=== PATIENT | male | born 1965 ===

== ENCOUNTER 2018-04-28 11:00 | Inpatient (IN) | payer OTHER ==
[2018-04-26 12:09] VITALS: BMI 19.3
[2018-04-28] MEDS ORDERED: Lidocaine 2% Inj (20ml) ONE (11:30)
[2018-04-28] MEDS ORDERED: Midazolam 2 MG/2 ML VIAL ONE (12:00)
[2018-04-28] MEDS ORDERED: Iodixanol 320 MG/ML 200 ML BOTTLE IV ONE ×2 (12:01→13:26)
[2018-04-28] MEDS ORDERED: Iodixanol 320 MG/ML 100 ML BOTTLE IV ONE (12:01)
[2018-04-28] MEDS ORDERED: Nitroglycerin 50mg in D5W 0 MG/0 ML BOTTLE IV ONE (12:01)
--- NOTE | 2018-04-28 12:10 | CP.PCM.HP ---
History of Present Illness - History of Present Illness History of Present Illness: Palmer Lopez- Internal Medicine Progress Note for Hospitalist Team Subjective: CC: Transfer from [facility] for Management of GI Bleed HPI: Patient is a 52 year old male with a past medical history of AIDS, tuberculosis involving the bone marrow, cachexia/failure to thrive, parasthesias who was transferred to the [facility] for evaluation and treatment of refractory upper GI Bleed despite endoscopic therapy. Patient is vented and sedated so no further subjective data can be assessed at this time. All information is ascertained from prior medical records. As a brief synopsis the patient presented to [facility] on 04/27/2018 for evaluation and treatment of feeling weak and experiencing paraesthesia. Patient was at that time was found to be pancytopenic while experiencing persistent hypotension, GI bleed, and hypercalcemia. 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 There was an inappropriate response to 6 total units of pRBC, 2 platelets, and 2 FFP. Patient has been transferred to [place] for evaluation by internventional radiology for possible embolization and IVC filter placement. 12 point ROS cannot be ascertained at this time due to altered mental status PMHx of recent active TB on discharge 04/04/18 (on therapy since 03/15/18), diagnosed with AIDS on HAART (CD422 03/2018) and syphilis 12/2017, and prior infectious diarrhea PSHx: Inguinal hernia repair Allergies: NKDA Social History: as per records- denied ETOH use, tobacco use, and illicit drug use Family History: as per records- mother with DM Medications: please refer to MAR PMD: Florin (last visit 04/24/2018) Pharmacy: unknown Physical Examination: - Constitutional Appears: No Acute Distress, Older Than Stated Age, Cachectic, Chronically Ill - Head Exam Head Exam: ATRAUMATIC, NORMAL INSPECTION - Eye Exam Eye Exam: Normal appearance - ENT Exam ENT Exam: Mucous Membranes Dry - Respiratory Exam Respiratory Exam: Clear to Ausculation Bilateral - Cardiovascular Exam Cardiovascular Exam: REGULAR RATE AND RHYTHM, +S1, +S2 - GI/Abdominal Exam GI & Abdominal Exam: Soft, Normal Bowel Sounds. absent: Tenderness, guarding, rebound tendernes - Extremities Exam Extremities Exam: absent: Pedal Edema - Neurological Exam Neurological Exam: limited exam-sedated on ventilator - Skin Skin Exam: jaundice Assessment and Plan: Patient is a 52 year old male with a past medical history of AIDS, tuberculosis involving the bone marrow, cachexia/failure to thrive, parasthesias who was transferred to the [facility] for evaluation and treatment of a refractory upper GI Bleed. Hemorrhagic Shock - monitor h and h - transfuse if hgb < 7 - monitor vitals, keep MAP > 65 - start pressors if MAP < 65 as per ICU team Respiratory Failure Secondary to Shock - intubated and sedated - vent settings as per ICU team - patient vented and sedated for airway protection GI Bleed - 4 FFP, 2 platelets, and 3 RBCs ordered - interventional radiology consulted for potential arterial embolization - monitor H and H Hemorrhagic Anemia - s/p emergent EGD at [facility], likely cause Duodenal AVM - c/w protonix drip - transfuse to keep Hgb > 7 - general surgery consulted- appreciate recommendations Symptomatic AIDS, Syphilis - CD4: 86 as of 04/24 - ID consulted- appreciate recommendations - MAHARAJ therapy - pending ID approval - azithromycin for MAC ppx - pending ID approval - Bactrim for PCP ppx - pending ID approval Tuberculosis - c/w RIP therapy (ethambutol d/terence by [facility] as per [place] records)- pending ID approval Failure to thrive/Wasting Syndrome - likley secondary to AIDS, multiple comorbities - treat underlying condition Prophylaxis - DVT- no AC at this time due to hemorrhagic anemia - GI ppx- protonix Patient case discussed with and plan approved by attending physician, Dr. Carey. Present on Admission - Present on Admission Any Indicators Present on Admission: No Past Patient History - Infectious Disease Hx of Infectious Diseases: None (see chart) - Tetanus Immunizations Tetanus Immunization: Unknown - Past Medical History & Family History Past Medical History?: Yes - Past Social History Smoking Status: Never Smoked Chewing Tobacco Use: No - CARDIAC Hx Cardiac Disorders: No - PULMONARY Hx Respiratory Disorders: No - NEUROLOGICAL Hx Neurological Disorder: No - HEENT Hx HEENT Problems: No - RENAL Hx Chronic Kidney Disease: No - ENDOCRINE/METABOLIC Hx Endocrine Disorders: No - HEMATOLOGICAL/ONCOLOGICAL Hx AIDS: Yes Hx Human Immunodeficiency Virus (HIV): Yes - INTEGUMENTARY Hx Dermatological Problems: No - MUSCULOSKELETAL/RHEUMATOLOGICAL Hx Musculoskeletal Disorders: No Hx Falls: Yes Other/Comment: TB inolving the bone - GASTROINTESTINAL Hx Pancreatitis: Yes - GENITOURINARY/GYNECOLOGICAL Hx Genitourinary Disorders: No - PSYCHIATRIC Hx Psychophysiologic Disorder: No Hx Substance Use: (Patient Unable to Answer) - SURGICAL HISTORY Hx Surgeries: Yes Other/Comment: hx of hernia repair (inguial hernia) - ANESTHESIA Hx Anesthesia: Yes Hx Anesthesia Reactions: No Hx Malignant Hyperthermia: No Meds Allergies/Adverse Reactions: Allergies Allergy/AdvReac Type Severity Reaction Status Date / Time No Known Allergies Allergy Verified 04/26/18 12:14 Results - Labs Result Diagrams: 04/28/18 12:30 04/28/18 12:30
[2018-04-28] MEDS ORDERED: Phenylephrine 10 mg/ml Inj ONE (12:16)
[2018-04-28 12:40] LABS: VENOUS BLOOD GAS PO2 148 mm/Hg (30-55); VENOUS BLOOD PH 7.32 (7.32-7.43)
[2018-04-28 12:45] LABS: BASO # 0.01 K/mm3 (0.0-2.0); BASO % 0.4 % (0.0-3.0); EOS # 0.1 (0.0-0.7); EOS % 1.8 % (1.5-5.0); GRAN # 2.1 (1.4-6.5); GRAN % 77.5 % (50.0-68.0); HEMOGLOBIN 8.2 g/dL (14.0-18.0); LYMPH # 0.4 (1.2-3.4); LYMPH % 15.9 % (22.0-35.0); MEAN CELL VOLUME 85.4 fl (80.0-105.0); MEAN CORPUSCULAR HEMOGLOBIN 30.6 pg (25.0-35.0); MEAN CORPUSCULAR HGB CONC 35.8 g/dl (31.0-37.0); MEAN PLATELET VOLUME 10.1 fl (7.0-11.0); MONO # 0.1 (0.1-0.6); MONO % 4.4 % (1.0-6.0); RBC 2.68 10^6/uL (3.5-6.1); RED CELL DISTRIBUTION WIDTH 16.6 % (11.5-14.5)
[2018-04-28 12:47] LABS: WHITE BLOOD COUNT 2.7 10^3/ul (4.5-11.0)
[2018-04-28 12:48] LABS: ALB/GLOB RATIO 0.5 (1.1-1.8); ALBUMIN 1.4 g/dL (3.0-4.8); ALT/SGPT 37 U/L (7-56); AST/SGOT 51 U/L (17-59); BLOOD UREA NITROGEN 34 mg/dL (7-21); CALCIUM 9.8 mg/dL (8.4-10.5); GFR AFRICAN-AMERICAN > 60; GFR NON-AFRICAN AMERICAN > 60; INR 1.18 (0.93-1.08); PROTHROMBIN TIME 13.6 SECONDS (9.4-12.5)
[2018-04-28 12:59] LABS: TROPONIN I < 0.01 ng/mL
[2018-04-28] MEDS ORDERED: Sodium Chloride 0.9% 1,000 ML IV STA (14:37)
[2018-04-28] MEDS ORDERED: Propofol 10 mg/ml 1,000 MG/100 ML VIAL ONE (14:49)
[2018-04-28] MEDS ORDERED: Propofol 10 mg/ml 1,000 MG/100 ML VIAL IV PRN (14:50)
[2018-04-28] MEDS: Pantoprazole 40mg/100mL NS 40 MG/100 ML BAG IVPB SCH ×2 (15:00→21:16)
--- NOTE | 2018-04-28 15:10 | CP.PCM.CON ---
History of Present Illness - History of Present Illness History of Present Illness: General Surgery Consult note for Dr. 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 Patient had original presented in [place] c/o weakness and parasthesias. He had several bloody BMs there, became hypotensive and was subsequently intubated and taken for emergency EGD. EGD repair of bleed was unsuccessful. Dr. Arvizu decied to transfer patient to [facility] for angiographic embolization. Prior to arrival the patient had recieved 9 units PRBC, 2 units FFP and 2 units platelets. Patient was taken to IR embolization by Dr. 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 Patient is currently mildly tachycardic but otherwise stable. History is entirely from medical records as patient is intubated and cannot be interviewed. PMH: HIV/AIDS, syphilis, tuberculosis with Pott's disease PSH: inguinal hernia repair Social:denied smoking ETOH and drugs at [place] Review of Systems - Review of Systems Systems not reviewed;Unavailable: Intubated Past Patient History - Infectious Disease Hx of Infectious Diseases: None (see chart) - Tetanus Immunizations Tetanus Immunization: Unknown - Past Medical History & Family History Past Medical History?: Yes - Past Social History Smoking Status: Never Smoked Chewing Tobacco Use: No - CARDIAC Hx Cardiac Disorders: No - PULMONARY Hx Respiratory Disorders: No - NEUROLOGICAL Hx Neurological Disorder: No - HEENT Hx HEENT Problems: No - RENAL Hx Chronic Kidney Disease: No - ENDOCRINE/METABOLIC Hx Endocrine Disorders: No - HEMATOLOGICAL/ONCOLOGICAL Hx AIDS: Yes Hx Human Immunodeficiency Virus (HIV): Yes - INTEGUMENTARY Hx Dermatological Problems: No - MUSCULOSKELETAL/RHEUMATOLOGICAL Hx Musculoskeletal Disorders: No Hx Falls: Yes Other/Comment: TB inolving the bone - GASTROINTESTINAL Hx Pancreatitis: Yes - GENITOURINARY/GYNECOLOGICAL Hx Genitourinary Disorders: No - PSYCHIATRIC Hx Psychophysiologic Disorder: No Hx Substance Use: (Patient Unable to Answer) - SURGICAL HISTORY Hx Surgeries: Yes Other/Comment: hx of hernia repair (inguial hernia) - ANESTHESIA Hx Anesthesia: Yes Hx Anesthesia Reactions: No Hx Malignant Hyperthermia: No Meds Allergies/Adverse Reactions: Allergies Allergy/AdvReac Type Severity Reaction Status Date / Time No Known Allergies Allergy Verified 04/26/18 12:14 - Medications Medications: Current Medications Atovaquone (Mepron) 750 mg PO BID JEROME PRN Reason: Protocol Sodium Chloride (Sodium Chloride 0.9%) 1,000 mls @ 999 mls/hr IV .Q1H1M STA Stop: 04/28/18 15:37 Pantoprazole Sodium (Protonix 40mg Ivpb) 40 mg in 100 mls @ 20 mls/hr IVPB .Q5H JEROME Dextrose/Sodium Chloride (Dextrose 5%/0.9% Ns 1000 Ml) 1,000 mls @ 150 mls/hr IV .Q6H40M JEROME Propofol (Diprivan) 1,000 mg in 100 mls @ 1.793 mls/hr IV .Q24H PRN; Protocol; 5 MCG/KG/MIN PRN Reason: TITRATE PER MD ORDER Isoniazid (Niazid) 300 mg PO DAILY JEROME PRN Reason: Protocol Pyrazinamide (Pyrazinamide) 1,000 mg PO DAILY JEROME PRN Reason: Protocol Pyridoxine HCl (Vitamin B6 50 Mg Tab) 100 mg PO DAILY JEROME Rifampin (Rifampin Cap) 600 mg PO DAILY JEROME PRN Reason: Protocol Physical Exam - Constitutional Appears: Cachectic, Chronically Ill - Head Exam Head Exam: ATRAUMATIC, NORMOCEPHALIC - ENT Exam ENT Exam: Mucous Membranes Dry - Respiratory Exam Respiratory Exam: NORMAL BREATHING PATTERN. absent: Respiratory Distress Additional comments: patient is intubated - Cardiovascular Exam Cardiovascular Exam: Tachycardia - GI/Abdominal Exam GI & Abdominal Exam: Distended, Soft. absent: Guarding, Rigid, Tenderness Additional comments: abdomen is mildly tympanic, bloody BM present in diaper - Extremities Exam Extremities exam: Negative for: pedal edema - Neurological Exam Additional comments: limited due to patient being sedated and intubated - Skin Skin Exam: Intact, Normal Color, Warm Results - Vital Signs Recent Vital Signs: Last Vital Signs Temp 99.1 F 04/28/18 12:10 Pulse 131 H 04/28/18 14:02 Resp 26 H 04/28/18 11:09 BP 136/68 04/28/18 14:03 Pulse Ox 92 L 04/28/18 14:02 - Labs Result Diagrams: 04/28/18 16:40 04/28/18 16:40 Labs: Laboratory Results - last 24 hr 04/28/18 04/28/18 04/28/18 12:20 12:30 12:30 WBC 2.7 L* RBC 2.68 L Hgb 8.2 L Hct 22.9 L MCV 85.4 MCH 30.6 MCHC 35.8 RDW 16.6 H Plt Count 67 L MPV 10.1 Gran % 77.5 H Lymph % (Auto) 15.9 L Amelia % (Auto) 4.4 Eos % (Auto) 1.8 Baso % (Auto) 0.4 Gran # 2.10 Lymph # (Auto) 0.4 L Amelia # (Auto) 0.1 Eos # (Auto) 0.1 Baso # (Auto) 0.01 PT INR APTT pO2 148 H VBG pH 7.32 VBG pCO2 38.0 L VBG HCO3 19.6 L VBG Total CO2 20.8 L VBG O2 Sat (Calc) 100.3 H VBG Base Excess -6.0 L VBG Potassium 3.5 L Sodium 141.0 Chloride 119.0 H Glucose 104 Lactate 1.3 FiO2 21.0 Potassium Carbon Dioxide Anion Gap BUN Creatinine Est GFR ( Amer) Est GFR (Non-Af Amer) Random Glucose Calcium Total Bilirubin AST ALT Alkaline Phosphatase Troponin I Total Protein Albumin Globulin Albumin/Globulin Ratio Venous Blood Potassium 3.5 L Blood Type A NEGATIVE Antibody Screen Negative Crossmatch See Detail BBK History Checked Patient has bt 04/28/18 04/28/18 12:30 12:30 WBC RBC Hgb Hct MCV MCH MCHC RDW Plt Count MPV Gran % Lymph % (Auto) Amelia % (Auto) Eos % (Auto) Baso % (Auto) Gran # Lymph # (Auto) Amelia # (Auto) Eos # (Auto) Baso # (Auto) PT 13.6 H INR 1.18 H APTT 35.0 pO2 VBG pH VBG pCO2 VBG HCO3 VBG Total CO2 VBG O2 Sat (Calc) VBG Base Excess VBG Potassium Sodium 143 Chloride 118 H Glucose Lactate FiO2 Potassium 3.5 L Carbon Dioxide 19 L Anion Gap 10 BUN 34 H Creatinine 1.0 Est GFR ( Amer) > 60 Est GFR (Non-Af Amer) > 60 Random Glucose 102 Calcium 9.8 Total Bilirubin 4.8 H AST 51 ALT 37 Alkaline Phosphatase 140 H D Troponin I < 0.01 Total Protein 4.4 L Albumin 1.4 L Globulin 3.0 Albumin/Globulin Ratio 0.5 L Venous Blood Potassium Blood Type Antibody Screen Crossmatch BBK History Checked Assessment & Plan - Assessment and Plan (Free Text) Assessment: 52 yr old male with HIV/AIDS, syphilis and TB with bone marrow involvement and a Duodenal bulb bleed s/p IR embolization of the left hepatic artery Plan: - Patient currently stable after successful IR embolization with coil in LHA mycotic aneurysm - Strict monitoring of NGT output, quality and amount - 1:1:1 prbc, plt and ffp replacement - Q4hr H/H - Further recs per Dr. Henry Cheney PGY 1 - Date & Time Date: 04/28/18 Time: 14:25
--- NOTE | 2018-04-28 15:26 | VASCULAR ---
PROCEDURE: 1. Selective celiac and SMA arteriograms. 2. Sub selective coil embolization of the right hepatic and proper hepatic artery. HISTORY: HIV positive. Active TB. Massive upper GI bleeding. Right hepatic artery pseudoaneurysm. PHYSICIAN(S): Elmer Arvizu M.D. TECHNIQUE: The procedure was performed under emergent basis. The patient was hydrated prior to the procedure and the appropriate labs drawn. The patient was placed supine on the arteriogram table and the left groin prepped and draped in the usual sterile fashion. Conscious sedation and monitoring were provided throughout the procedure by a nurse. Via a left common femoral artery approach, a 5 Nepalese sheath was placed in the right groin. Through the sheath and over a guidewire, a 5 Nepalese C1 catheter was placed in the proximal SMA. A DSA SMA arteriogram was performed. Next a catheter was placed in the celiac axis and a DSA celiac axis arteriogram performed. Selective common and proper hepatic DSA arteriograms were performed. There is a large lobulated pseudoaneurysm arising from the proximal right hepatic artery. A 3 Nepalese micro catheter was used to cross the right hepatic artery into its distal branches. Embolization distal to the pseudoaneurysms performed with 4 mm 0.018 microcoils. Additional 6 mm 0.035 coils were placed in the right hepatic artery, pseudoaneurysm, and proper hepatic artery. Embolization was performed to the takeoff of the gastroduodenal artery. No supply to the pseudoaneurysm or bleeding was noted from the gastroduodenal artery. Subsequently it was not embolized. Completion angiograms were obtained. The sheath was removed and hemostasis obtained with a Perclose device. FINDINGS: The SMA arteriogram is normal. No sites of bleeding were identified. No vasculitis or pseudoaneurysms were noted. SMV and portal vein are opacified and appear patent. No aberrant hepatic arterial supply is identified off the SMA. The celiac axis is patent. There is a large lobulated pseudoaneurysm arising from the right hepatic artery. No obvious extravasation or supply was identified arising from the gastroduodenal artery. The left hepatic artery is patent and normal. Successful embolization was performed with multiple coils. No off target embolization was appreciated. 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 2. Successful selective embolization distal and proximal to the pseudoaneurysm as described above. 3. Normal SMA.
--- NOTE | 2018-04-28 15:28 | VASCULAR ---
PROCEDURE: IVC Filter placement HISTORY: Massive upper GI bleed. Pseudoaneurysm right hepatic artery. Pulmonary embolus. Needs IVC filter. PHYSICIAN(S): Elmer Arvizu MD. TECHNIQUE: The procedure was performed under emergency basis. The patient was placed supine on the arteriogram table the left groin prepped and draped usual sterile fashion. Conscious sedation and monitoring were provided throughout the procedure by a nurse. Via a left common femoral vein approach, a 5 Tajik sheath was placed. A 5 Tajik flush catheter was placed in the left common iliac artery and a DSA IVC gram performed. Exchange was made for a support wire placed in the right atrium. The 7 Tajik sheath was advanced to the level of the renal veins. Next a argon retrievable filter was deployed in the infrarenal IVC at the level of L3. A post deployment cavagram was performed through the introducer sheath. The sheath was removed and hemostasis obtained. Patient tolerated the procedure well. FINDINGS: The visualized iliac veins and IVC are normal. No evidence of IVC thrombus or anomaly is seen. The renal veins are easily identified. The argon retrievable filter was deployed and is in good position at the level of L3. IMPRESSION: 1. No evidence of IVC anomaly or thrombus. 2. Successful deployment of a argon retrievable filter in the infrarenal IVC at the level of L3.
[2018-04-28 15:36] LABS: ARTERIAL BLOOD GAS HCO3 17.2 mmol/L (21-28); ARTERIAL BLOOD GAS HEMOGLOBIN 7.8 g/dL (11.7-17.4); ARTERIAL BLOOD GAS O2 CAPACITY 11.1 mL/dl (16-24); ARTERIAL BLOOD GAS O2 CONTENT 11.1 ML/dl (15-23); ARTERIAL BLOOD GAS O2 SAT 100.4 % (95-98); ARTERIAL BLOOD GAS PCO2 29 mm/Hg (35-45); ARTERIAL BLOOD GAS PH 7.38 (7.35-7.45); ARTERIAL BLOOD GAS TCO2 18.1 mmol.L (22-28)
--- NOTE | 2018-04-28 15:51 | RAD ---
Date of service: 04/28/2018 HISTORY: ett, tb COMPARISON: No prior. FINDINGS: LUNGS: The endotracheal tube is at the level of the clavicles. There is moderate vascular and interstitial congestion and a more focal right upper lobe infiltrate PLEURA: No significant pleural effusion identified, no pneumothorax apparent. CARDIOVASCULAR: Normal. OSSEOUS STRUCTURES: No significant abnormalities. VISUALIZED UPPER ABDOMEN: Normal. OTHER FINDINGS: None. IMPRESSION: The endotracheal tube is at the level of the clavicles. There is moderate vascular and interstitial congestion and a more focal right upper lobe infiltrate
[2018-04-28 17:05] LABS: ALB/GLOB RATIO 0.5 (1.1-1.8); ALBUMIN 1.5 g/dL (3.0-4.8); ALT/SGPT 35 U/L (7-56); AST/SGOT 48 U/L (17-59); BLOOD UREA NITROGEN 29 mg/dL (7-21); CALCIUM 9.3 mg/dL (8.4-10.5); GFR AFRICAN-AMERICAN > 60; GFR NON-AFRICAN AMERICAN > 60
--- NOTE | 2018-04-28 17:20 | RAD ---
Date of service: 04/28/2018 PROCEDURE: Portable chest HISTORY: confirm placement of OGT COMPARISON: Earlier study same day TECHNIQUE: FINDINGS: The nasogastric tube is in satisfactory position terminating in the region of the gastric fundus. The study is otherwise unchanged IMPRESSION: Satisfactory position of nasogastric tube
[2018-04-28 17:27] LABS: HEMOGLOBIN 7.5 g/dL (14.0-18.0); MEAN CELL VOLUME 85.1 fl (80.0-105.0); MEAN CORPUSCULAR HEMOGLOBIN 31.1 pg (25.0-35.0); MEAN CORPUSCULAR HGB CONC 35.4 g/dl (31.0-37.0); RBC 2.49 10^6/uL (3.5-6.1); WHITE BLOOD COUNT 2.5 10^3/ul (4.5-11.0)
[2018-04-28 17:28] LABS: BASO # 0.01 K/mm3 (0.0-2.0); BASO % 0.4 % (0.0-3.0); EOS % 1.2 % (1.5-5.0); GRAN # 1.93 (1.4-6.5); GRAN % 77.5 % (50.0-68.0); LYMPH # 0.4 (1.2-3.4); LYMPH % 14.1 % (22.0-35.0); MEAN PLATELET VOLUME 9.5 fl (7.0-11.0); MONO # 0.2 (0.1-0.6); MONO % 6.8 % (1.0-6.0); RED CELL DISTRIBUTION WIDTH 16.5 % (11.5-14.5)
[2018-04-28 17:29] LABS: INR 1.24 (0.93-1.08); PROTHROMBIN TIME 14.2 SECONDS (9.4-12.5)
[2018-04-28] MEDS ORDERED: NOREPINEPHRINE BIT/0.9 % NACL 4 MG/250 ML BAG IV PRN (17:35)
[2018-04-28] MEDS ORDERED: Albumin Human 5% (12.5 gm/250 ml) IV STA ×3 (17:35→18:00)
[2018-04-28] MEDS: Dextrose 5%/0.9% NS 1,000 ML IV SCH ×2 (18:32→21:16)
[2018-04-28] MEDS: Atovaquone 750 mg/5 ml Susp UD PO SCH (18:53)
[2018-04-28] MEDS: Propofol 10 mg/ml 1,000 MG/100 ML VIAL IV PRN (22:07)
[2018-04-28 22:37] LABS: BASO # 0.02 K/mm3 (0.0-2.0); BASO % 0.6 % (0.0-3.0); EOS % 0.9 % (1.5-5.0); GRAN # 2.61 (1.4-6.5); GRAN % 75.9 % (50.0-68.0); HEMOGLOBIN 8.7 g/dL (14.0-18.0); LYMPH # 0.5 (1.2-3.4); LYMPH % 14.2 % (22.0-35.0); MEAN CORPUSCULAR HEMOGLOBIN 30.4 pg (25.0-35.0); MEAN CORPUSCULAR HGB CONC 35.8 g/dl (31.0-37.0); MEAN PLATELET VOLUME 10.7 fl (7.0-11.0); MONO # 0.3 (0.1-0.6); MONO % 8.4 % (1.0-6.0); RBC 2.86 10^6/uL (3.5-6.1); RED CELL DISTRIBUTION WIDTH 15.8 % (11.5-14.5); WHITE BLOOD COUNT 3.4 10^3/ul (4.5-11.0)
[2018-04-28 22:57] LABS: INR 1.19 (0.93-1.08); PROTHROMBIN TIME 13.6 SECONDS (9.4-12.5)
[2018-04-29] MEDS: Pantoprazole 40mg/100mL NS 40 MG/100 ML BAG IVPB SCH ×2 (01:29→06:58)
[2018-04-29 02:21] LABS: BASO # 0.01 K/mm3 (0.0-2.0); BASO % 0.3 % (0.0-3.0); EOS % 0.9 % (1.5-5.0); GRAN # 2.66 (1.4-6.5); HEMOGLOBIN 8.7 g/dL (14.0-18.0); LYMPH # 0.5 (1.2-3.4); LYMPH % 15.1 % (22.0-35.0); MEAN CELL VOLUME 84.3 fl (80.0-105.0); MEAN CORPUSCULAR HEMOGLOBIN 30.3 pg (25.0-35.0); MEAN PLATELET VOLUME 10.2 fl (7.0-11.0); MONO # 0.2 (0.1-0.6); MONO % 6.7 % (1.0-6.0); PLATELET COUNT 82 10^3/uL (120.0-450.0); RBC 2.87 10^6/uL (3.5-6.1); RED CELL DISTRIBUTION WIDTH 16.1 % (11.5-14.5); WHITE BLOOD COUNT 3.5 10^3/ul (4.5-11.0)
[2018-04-29] MEDS: Dextrose 5%/0.9% NS 1,000 ML IV SCH (03:57)
[2018-04-29 05:28] LABS: ARTERIAL BLOOD GAS HCO3 16.7 mmol/L (21-28); ARTERIAL BLOOD GAS HEMOGLOBIN 8.3 g/dL (11.7-17.4); ARTERIAL BLOOD GAS O2 CAPACITY 11.8 mL/dl (16-24); ARTERIAL BLOOD GAS O2 CONTENT 11.9 ML/dl (15-23); ARTERIAL BLOOD GAS O2 SAT 100.7 % (95-98); ARTERIAL BLOOD GAS PCO2 27 mm/Hg (35-45); ARTERIAL BLOOD GAS TCO2 17.5 mmol.L (22-28)
[2018-04-29 06:40] LABS: BASO # 0.01 K/mm3 (0.0-2.0); BASO % 0.3 % (0.0-3.0); EOS % 1.1 % (1.5-5.0); GRAN # 2.8 (1.4-6.5); GRAN % 79.4 % (50.0-68.0); HEMOGLOBIN 8.8 g/dL (14.0-18.0); LYMPH # 0.5 (1.2-3.4); LYMPH % 13.3 % (22.0-35.0); MEAN CELL VOLUME 84.3 fl (80.0-105.0); MEAN CORPUSCULAR HGB CONC 35.6 g/dl (31.0-37.0); MEAN PLATELET VOLUME 10.2 fl (7.0-11.0); MONO # 0.2 (0.1-0.6); MONO % 5.9 % (1.0-6.0); RBC 2.93 10^6/uL (3.5-6.1); RED CELL DISTRIBUTION WIDTH 16.2 % (11.5-14.5); WHITE BLOOD COUNT 3.5 10^3/ul (4.5-11.0)
[2018-04-29] MEDS ORDERED: Potassium Chloride 20 mEq ER Tab PO STA (06:47)
[2018-04-29 06:51] LABS: NEUTROPHIL 58 % (50.0-70.0)
[2018-04-29] MEDS: Propofol 10 mg/ml 1,000 MG/100 ML VIAL IV PRN (06:59)
[2018-04-29 07:02] LABS: BAND 16 % (0-2)
[2018-04-29 07:03] LABS: ANISOCYTOSIS SLIGHT; EOSINOPHIL 1 % (0.0-3.0); LYMPHOCYTE 19 % (22.0-35.0); MONOCYTE 5 % (1.0-6.0); PLATELET ESTIMATE LOW (NORMAL); POIKILOCYTOSIS SLIGHT
[2018-04-29 07:04] LABS: METAMYELOCYTE 1 %
[2018-04-29 07:10] LABS: INR 1.17 (0.93-1.08); PROTHROMBIN TIME 13.5 SECONDS (9.4-12.5)
[2018-04-29 07:18] LABS: ALB/GLOB RATIO 0.6 (1.1-1.8); ALBUMIN 1.7 g/dL (3.0-4.8); ALT/SGPT 31 U/L (7-56); AST/SGOT 73 U/L (17-59); BLOOD UREA NITROGEN 25 mg/dL (7-21); CALCIUM 9.3 mg/dL (8.4-10.5); GFR AFRICAN-AMERICAN > 60; GFR NON-AFRICAN AMERICAN > 60
[2018-04-29] MEDS ORDERED: Magnesium 2 gm/50 ml NS 2 GM/50 ML BAG IVPB ONE (07:22)
--- NOTE | 2018-04-29 08:36 | CON ---
DATE: 04/28/2018 HISTORY OF PRESENT ILLNESS: Patient is a 52-year-old gentleman with history of HIV, syphilis, MTB, who presented to [facility] 3 days ago on 04/25/2018 with increased fatigue, weakness, and frequent falls. He also failed to thrive. Upon admission to the floor, he developed tachycardia, hypotension, and difficulty breathing. Eventually, he was intubated and fluid resuscitation was started. Patient was transferred to ICU at [facility]. Presumed diagnosis of severe sepsis with multiorgan system failure was made; however, shortly afterwards patient was found to have hemoglobin level substantially dropped, black stool, and GI consult was called for endoscopy. Of note, three AFB reportedly were negative (based on initial admitting note at [facility]). 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 Patient was decided to get transferred to [facility] for embolization of the fistula with subsequent return to [facility]. Upon admission to [facility] ICU, procedure was done and based on my conversation with Dr. Arvizu, who did the procedure, the bleeding was stopped. Patient continued to be in ICU for further management and monitoring. No nausea, no vomiting, no diarrhea. Patient was intermittently febrile. PAST MEDICAL HISTORY: MTB, HIV, syphilis. SOCIAL HISTORY: Unobtainable as patient is intubated. HOME MEDICATIONS: Rifampin, Bactrim, raltegravir, vitamin B6, pyrazinamide, nystatin oral suspension, multivitamins, Remeron, isoniazid, Neurontin, ethambutol, Truvada, and azithromycin. REVIEW OF SYSTEMS: Review of 12-organ system other than mentioned in history of present illness is negative. ALLERGIES: NKDA. PHYSICAL EXAMINATION: GENERAL: Patient is intubated and is on PRVC 410/5/12/50%. Patient is on D5 normal saline at 150 mL/hour. Patient is on Protonix drip and propofol drip at 50 mcg/kg/min. HEENT: Head and neck atraumatic. LUNGS: Clear to auscultation bilaterally. HEART: Regular rate and rhythm. S1 and S2 normal. ABDOMEN: Soft, nontender,nondistended. MUSCULOSKELETAL: No C/C/E. NEUROLOGIC: Patient is sedated. SKIN: Moist. PSYCHIATRIC: Patient is sedated. LABORATORY DATA: WBC 2.7, hemoglobin 8.2, platelet count 67 (overall patient received 8 to 9 units since first admission to [facility]. Sodium 143, potassium 3.5, chloride 118, carbon dioxide 19, BUN 34, creatinine 1, glucose 102. AST 51, ALT 37, alkaline phosphatase 140. Troponin less than 0.01. Albumin 1.4. During patient's admission to [facility], he had chest, abdomen, and pelvis CTA which revealed some ground-glass/tree-in-bud opacities/nodules, left main pulmonary artery filling defect seen in the images 52 to 54 series could represent pulmonary embolus, partially distended gallbladder with gallstones and gallbladder sludge. There is enhancement of the wall of intra and extrahepatic bile duct with distal common duct stone measuring 7 mm representing acute obstructive choledocholithiasis and cholangitis. ASSESSMENT AND PLAN: This is a 52-year-old gentleman who presented with massive upper gastrointestinal bleed secondary to mycotic aneurism of hepatic artery impinging on duodenal wall with subsequent ulcer formation and bleeding ensuing. Bleeding was contained with IR arterial embolization. We will definitely continue with serial CBC and maintain hemoglobin more than 8. Maintenance IV fluids. Dr. Figueroa (Vascular Surgery) was contacted for recommendations as well. Patient does have complex infectious disease mix including human immunodeficiency virus, Mycobacterium tuberculosis, and syphilis. We will definitely get Infectious Disease on board and Dr. Carlton's consult is appreciated. Apparently, patient is on Mepron, isoniazid, pyrazinamide, and rifampin. Whether or not to add broad-spectrum anti-bacterial antibiotic coverage, will be up to Infectious Disease Service. Meanwhile, we will repeat blood culture. 1. Neurologic: Patient is sedated with propofol. Once his hemoglobin is stable and no signs of active bleeding ascertained, we will start tapering down sedation with attempt at weaning trial. 2. Pulmonary: We will continue with protective lung ventilation strategy with tidal volume of 4 to 8 mL per predicted body weight and plateau pressure less than 30 cm of water to avoid development of acute lung injury. We will continue with head of bed elevated more than 35 degrees and oral hygiene. Patient's blood pressure is substantially improved; however, he is still tachycardic. One of the possibilities is that he might be behind on hydration. I will give normal saline bolus and then we will transfuse blood as needed. Patient also has MTB and currently treated by the ID service. Situation is being complicated by the fact that he cant get PO meds due to recent bleeding and there is no IV alternative to PO HAART and anti tb Rx. Patient has pulmonary embolism and inferior vena cava filter was placed as well. 3. Cardiovascular: Patient is hemodynamically improved. He is still tachycardic, fluid resuscitation is ongoing. We will get echocardiogram to better assess right and left ventricular function, both of which can be affected by human immunodeficiency virus. Patient appeared to be comfortable. 4. 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 It appears that the bleeding stopped. We will continue with serial CBC. We will continue with Protonix drip. GI service is following patient as well. Whether or not to proceed with magnetic resonance cholangiopancreatography or endoscopic retrograde cholangiopancreatography will be deferred to Gastrointestinal Service as well as assessment of risks and benefits of this invasive procedure at present time. Surgical service will be following patient as well. 5. Infectious Disease: Patient has history of Mycobacterium tuberculosis and currently is being treated with isoniazid, pyrazinamide, and rifampin. He is also on Mepron. Infectious Disease Service will follow patient as well. 7. Renal: We will maintain euvolemia, euglycemia, normothermia, and oxygen saturation more than 90%. We will aim at mean arterial pressure more than 65. We will try to avoid hyperkalemia and nephrotoxic medications. We will do ABG and if significant metabolic acidosis is found, we will switch D5 half-normal saline to bicarb drip. 8. Endocrine: We will proceed with blood glucose, 140 to 180 range according to NICE-SUGAR trial. Patient has pancytopenia and leukopenia as well as anemia. We will maintain hemoglobin more than 8 and we will try to maintain platelet count more than 100 and we will monitor white cell count closely. ccm time 40 min Jose M Parrish MD FAUSTO
--- NOTE | 2018-04-29 09:20 | CP.PCM.PN ---
<Wil Thomson - Last Filed: 04/29/18 09:16> Subjective - Date & Time of Evaluation Date of Evaluation: 04/29/18 Time of Evaluation: 07:30 - Subjective Subjective: Overnight required pressors, but off this AM. Hgb stable over 24 hrs. Awakes to moderate tactile stimulation but otherwise nonresponsive. Unable to obtain ROS due to clinical condition Objective - Vital Signs/Intake and Output Vital Signs (last 24 hours): Temp Pulse Resp BP Pulse Ox 99.9 F H 118 H 26 H 110/63 98 04/29/18 09:00 04/29/18 09:00 04/29/18 08:00 04/29/18 09:00 04/29/18 09:00 Intake and Output: 04/29/18 04/29/18 06:59 18:59 Intake Total 845 2360 Output Total 2225 Balance 845 135 - Medications Medications: Current Medications Atovaquone (Mepron) 750 mg PO BID JEROME PRN Reason: Protocol Last Admin: 04/28/18 18:53 Dose: Not Given Pantoprazole Sodium (Protonix 40mg Ivpb) 40 mg in 100 mls @ 20 mls/hr IVPB .Q5H [facility] Last Admin: 04/29/18 06:58 Dose: 20 mls/hr Dextrose/Sodium Chloride (Dextrose 5%/0.9% Ns 1000 Ml) 1,000 mls @ 150 mls/hr IV .Q6H40M [facility] Last Admin: 04/29/18 03:57 Dose: 150 mls/hr Propofol (Diprivan) 1,000 mg in 100 mls @ 1.793 mls/hr IV .Q24H PRN; Protocol; 5 MCG/KG/MIN PRN Reason: TITRATE PER MD ORDER Last Admin: 04/29/18 06:59 Dose: 30 mcg/kg/min, 10.761 mls/hr NOREPINEPHRINE BIT/0.9 % NACL (Levophed 4 Mg/ 250 Ml Ns Premixed) 4 mg in 250 mls @ 15 mls/hr IV .[id number] PRN; Protocol; 4 MCG/MIN PRN Reason: TITRATE PER MD ORDER Last Titration: 04/29/18 07:30 Dose: 0 mcg/min, 0 mls/hr Potassium Chloride (Potassium Chloride 20 Meq/100 Ml) 20 meq in 100 mls @ 50 mls/hr IVPB Q2H [facility] Stop: 04/29/18 19:29 Last Admin: 04/29/18 08:33 Dose: 50 mls/hr Isoniazid (Niazid) 300 mg PO DAILY JREOME PRN Reason: Protocol Last Admin: 04/28/18 18:53 Dose: Not Given Pyrazinamide (Pyrazinamide) 1,000 mg PO DAILY JEROME PRN Reason: Protocol Last Admin: 04/28/18 18:55 Dose: Not Given Pyridoxine HCl (Vitamin B6 50 Mg Tab) 100 mg PO DAILY [facility] Rifampin (Rifampin Cap) 600 mg PO DAILY [facility] PRN Reason: Protocol Last Admin: 04/28/18 18:55 Dose: Not Given - Labs Labs: 04/29/18 05:50 04/29/18 05:50 PT 13.5 SECONDS (9.4-12.5) H 04/29/18 05:50 INR 1.17 (0.93-1.08) H 04/29/18 05:50 APTT 35.0 Seconds (25.1-36.5) 04/28/18 12:30 - Constitutional Appears: Older Than Stated Age, Cachectic, Chronically Ill, Other (intubated, sedated on vent) - Eye Exam Eye Exam: absent: Conjunctival injection, Scleral icterus - ENT Exam ENT Exam: Mucous Membranes Dry Additional comments: NG in place with ~200 cc dark red output - Cardiovascular Exam Cardiovascular Exam: Tachycardia. absent: Bradycardia, Irregular Rhythm - GI/Abdominal Exam GI & Abdominal Exam: Distended, Normal Bowel Sounds. absent: Firm, Tenderness Assessment and Plan - Assessment and Plan (Free Text) Assessment: 52 year old male with PMH of recent active TB on discharge 04/04/18 (on therapy since 03/15/18), diagnosed with AIDS on HAART (CD4 86 04/2018) and syphilis 12/2017 , and prior infectious diarrhea 01/2018 presenting for weakness and abnormal labs from Dr. Moura's office. Active treatment of VDRF 2/2 hemodynamic instability for airway protection in setting of symptomatic anemia 2/2 severe acute upper GI bleed, PE on CTA, and ongoing treatment of active Tuberculosis. Hepatitis panel negative. No prior EGD/colonoscopy before admission. 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 and IVC filter placement for PE -ongoing risk of refractory upper GI Bleed despite endoscopic therapy -H/H with inappropriate response to 6U pRBC, 2 platelets, 2 FFP though Hgb stable over last 24 hrs and off pressors this AM -continue protonix drip -If pt to rebleed recommend vascular surgery evaluation -monitor Hgb -Check Blood Cx and Fungal Cultures -monitor LFTs -poor prognosis given life-threatening severity of acute upper GI bleed and multiple comorbidities -close monitoring of clinical course <Jackson Cagle - Last Filed: 04/29/18 09:35> Objective - Vital Signs/Intake and Output Vital Signs (last 24 hours): Temp Pulse Resp BP Pulse Ox 99.9 F H 118 H 26 H 110/63 98 04/29/18 09:00 04/29/18 09:00 04/29/18 08:00 04/29/18 09:00 04/29/18 09:00 Intake and Output: 04/29/18 04/29/18 06:59 18:59 Intake Total 845 2420 Output Total 2225 Balance 845 195 - Medications Medications: Current Medications Atovaquone (Mepron) 750 mg PO BID JEROME PRN Reason: Protocol Last Admin: 04/28/18 18:53 Dose: Not Given Pantoprazole Sodium (Protonix 40mg Ivpb) 40 mg in 100 mls @ 20 mls/hr IVPB .Q5H [facility] Last Admin: 04/29/18 06:58 Dose: 20 mls/hr Dextrose/Sodium Chloride (Dextrose 5%/0.9% Ns 1000 Ml) 1,000 mls @ 150 mls/hr IV .Q6H40M [facility] Last Admin: 04/29/18 03:57 Dose: 150 mls/hr Propofol (Diprivan) 1,000 mg in 100 mls @ 1.793 mls/hr IV .Q24H PRN; Protocol; 5 MCG/KG/MIN PRN Reason: TITRATE PER MD ORDER Last Titration: 04/29/18 09:10 Dose: 0 mcg/kg/min, 0 mls/hr NOREPINEPHRINE BIT/0.9 % NACL (Levophed 4 Mg/ 250 Ml Ns Premixed) 4 mg in 250 mls @ 15 mls/hr IV .[id number] PRN; Protocol; 4 MCG/MIN PRN Reason: TITRATE PER MD ORDER Last Titration: 04/29/18 07:30 Dose: 0 mcg/min, 0 mls/hr Potassium Chloride (Potassium Chloride 20 Meq/100 Ml) 20 meq in 100 mls @ 50 mls/hr IVPB Q2H [facility] Stop: 04/29/18 19:29 Last Admin: 04/29/18 08:33 Dose: 50 mls/hr Isoniazid (Niazid) 300 mg PO DAILY JEROME PRN Reason: Protocol Last Admin: 04/28/18 18:53 Dose: Not Given Pyrazinamide (Pyrazinamide) 1,000 mg PO DAILY JEROME PRN Reason: Protocol Last Admin: 04/28/18 18:55 Dose: Not Given Pyridoxine HCl (Vitamin B6 50 Mg Tab) 100 mg PO DAILY JEROME Rifampin (Rifampin Cap) 600 mg PO DAILY JEROME PRN Reason: Protocol Last Admin: 04/28/18 18:55 Dose: Not Given - Labs Labs: 04/29/18 05:50 04/29/18 05:50 PT 13.5 SECONDS (9.4-12.5) H 04/29/18 05:50 INR 1.17 (0.93-1.08) H 04/29/18 05:50 APTT 35.0 Seconds (25.1-36.5) 04/28/18 12:30 Attending/Attestation - Attestation I have personally seen and examined this patient.: Yes I have fully participated in the care of the patient.: Yes I have reviewed all pertinent clinical information, including history, physical exam and plan: Yes Notes (Text): 04/29/18 09:30 I have seen and examined patient with GI fellow. He remains intubated and sedated in intensive care unit, required vasopressor support overnight. As per nursing staff, reported 200 cc bloody output via NGT over past 12 hours, no bowel movements. 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 PE s/p IVC filter - NPO - Continue with antibiotic therapy, obtain repeat blood and fungal cultures - H/H stable, continue to monitor and transfuse as necessary - Continue with PPI therapy - Follow up vascular surgery recommendations - If patient rebleeds, unfortunately there is no role for endoscopic therapy given clinical scenario, surgical treatment of pseudoaneurysm would be only option - If patient remains stable after 72 hours, would likely require anticoagulation given PE - Overall patient prognosis is quite poor. No further planned interventions, will sign off case. Please reconsult as necessary, thank you.
[2018-04-29] MEDS: Atovaquone 750 mg/5 ml Susp UD PO SCH (09:28)
[2018-04-29] MEDS ORDERED: Dexmedetomidine 400mcg/100mL 400 MCG/100 ML BOTTLE IV PRN (10:25)
[2018-04-29] MEDS ORDERED: Lactated Ringer's 1,000 ML IV SCH ×2 (10:30→13:15)
[2018-04-29 10:52] LABS: BASO # 0.02 K/mm3 (0.0-2.0); BASO % 0.5 % (0.0-3.0); EOS % 0.5 % (1.5-5.0); GRAN # 3.02 (1.4-6.5); GRAN % 81.2 % (50.0-68.0); HEMOGLOBIN 9.3 g/dL (14.0-18.0); LYMPH # 0.4 (1.2-3.4); LYMPH % 11.6 % (22.0-35.0); MEAN CELL VOLUME 84.1 fl (80.0-105.0); MEAN CORPUSCULAR HEMOGLOBIN 30.2 pg (25.0-35.0); MEAN CORPUSCULAR HGB CONC 35.9 g/dl (31.0-37.0); MEAN PLATELET VOLUME 10.1 fl (7.0-11.0); MONO # 0.2 (0.1-0.6); MONO % 6.2 % (1.0-6.0); RBC 3.08 10^6/uL (3.5-6.1); RED CELL DISTRIBUTION WIDTH 16.5 % (11.5-14.5); WHITE BLOOD COUNT 3.7 10^3/ul (4.5-11.0)
[2018-04-29 10:53] LABS: VENOUS BLOOD GAS BASE EXCESS -6.6 mmol/L (0.0-2.0); VENOUS BLOOD GAS PO2 122 mm/Hg (30-55); VENOUS BLOOD PH 7.38 (7.32-7.43)
[2018-04-29] MEDS ORDERED: WATER IV SCH (11:20)
[2018-04-29] MEDS ORDERED: PANTOPRAZOLE IV SCH (11:20)
[2018-04-29] MEDS ORDERED: DEXTROSE 5% IV SCH (11:20)
--- NOTE | 2018-04-29 11:21 | CP.PCM.PN ---
Subjective - Date & Time of Evaluation Date of Evaluation: 04/29/18 Time of Evaluation: 11:12 - Subjective Subjective: VASCULAR SURGERY PROGRESS NOTE FOR DR. BRAVO Patient seen and examined at bedside in ICU. Pt is s/p coil embolization of R Hepatic & R proper hepatic arteries. Patient is intubated and NG suction in place on intermittent suction. Pt is nonresponsive and is unable to give ROS. Objective - Vital Signs/Intake and Output Vital Signs (last 24 hours): Temp Pulse Resp BP Pulse Ox 100.2 F H 113 H 26 H 110/66 100 04/29/18 10:20 04/29/18 10:20 04/29/18 08:00 04/29/18 10:15 04/29/18 10:20 Intake and Output: 04/29/18 04/29/18 06:59 18:59 Intake Total 845 2420 Output Total 2225 Balance 845 195 - Medications Medications: Current Medications Atovaquone (Mepron) 750 mg PO BID JEROME PRN Reason: Protocol Last Admin: 04/29/18 09:28 Dose: Not Given Pantoprazole Sodium (Protonix 40mg Ivpb) 40 mg in 100 mls @ 20 mls/hr IVPB .Q5H [facility] Last Admin: 04/29/18 06:58 Dose: 20 mls/hr Propofol (Diprivan) 1,000 mg in 100 mls @ 1.793 mls/hr IV .Q24H PRN; Protocol; 5 MCG/KG/MIN PRN Reason: TITRATE PER MD ORDER Last Titration: 04/29/18 09:10 Dose: 0 mcg/kg/min, 0 mls/hr NOREPINEPHRINE BIT/0.9 % NACL (Levophed 4 Mg/ 250 Ml Ns Premixed) 4 mg in 250 mls @ 15 mls/hr IV .[id number] PRN; Protocol; 4 MCG/MIN PRN Reason: TITRATE PER MD ORDER Last Titration: 04/29/18 07:30 Dose: 0 mcg/min, 0 mls/hr Potassium Chloride (Potassium Chloride 20 Meq/100 Ml) 20 meq in 100 mls @ 50 mls/hr IVPB Q2H [facility] Stop: 04/29/18 19:29 Last Admin: 04/29/18 10:49 Dose: 50 mls/hr Dexmedetomidine HCl (Precedex 400mcg/100ml) 400 mcg in 100 mls @ 2.948 mls/hr IV .Q24H PRN; Protocol; 0.2 MCG/KG/HR PRN Reason: Agitation Last Admin: 04/29/18 10:41 Dose: 0.2 mcg/kg/hr, 2.948 mls/hr Lactated Ringer's (Lactated Ringer's) 1,000 mls @ 150 mls/hr IV .Q6H40M [facility] Last Admin: 04/29/18 10:42 Dose: 150 mls/hr Isoniazid (Niazid) 300 mg PO DAILY JEROME PRN Reason: Protocol Last Admin: 04/29/18 09:28 Dose: Not Given Pyrazinamide (Pyrazinamide) 1,000 mg PO DAILY JEROME PRN Reason: Protocol Last Admin: 04/29/18 09:28 Dose: Not Given Pyridoxine HCl (Vitamin B6 50 Mg Tab) 100 mg PO DAILY [facility] Last Admin: 04/29/18 09:27 Dose: Not Given Rifampin (Rifampin Cap) 600 mg PO DAILY [facility] PRN Reason: Protocol Last Admin: 04/29/18 09:28 Dose: Not Given - Labs Labs: 04/29/18 10:40 04/29/18 05:50 PT 13.5 SECONDS (9.4-12.5) H 04/29/18 05:50 INR 1.17 (0.93-1.08) H 04/29/18 05:50 APTT 35.0 Seconds (25.1-36.5) 04/28/18 12:30 - Constitutional Appears: Older Than Stated Age, Cachectic, Chronically Ill - Head Exam Head Exam: NORMAL INSPECTION, NORMOCEPHALIC - ENT Exam Additional comments: OGT in place with intermittent suction. 240 cc dark blood in container. ET tube in place - Respiratory Exam Additional comments: Mechanically ventilated. No sign of acute respiratory distress - Cardiovascular Exam Cardiovascular Exam: Tachycardia, REGULAR RHYTHM. absent: Irregular Rhythm - GI/Abdominal Exam GI & Abdominal Exam: Distended, Soft, Tenderness. absent: Firm, Rigid - Extremities Exam Extremities Exam: absent: Calf Tenderness, Pedal Edema - Neurological Exam Neurological Exam: absent: Awake - Psychiatric Exam Additional comments: Sedated - Skin Skin Exam: Dry, Normal Color, Warm Assessment and Plan - Assessment and Plan (Free Text) Assessment: 52 y/o M with GI bleed from R hepatic artery pseudoaneurysm POD#1 s/p R common hepatic/R proper hepatic coil embolization Plan: - no indication for surgical intervention at this time. Patient is currently stable. Will continue with close observation - Continue to monitor for other signs of GI bleed including bowel movements and NG tube suction. - Monitor Hgb. Transfuse blood products as needed - Strict I&O measurements, especially urine output - Continue protonix drip - Continue to supplement electrolytes prn. Recheck K this pm - Medical management per ICU - f/u IR recs - f/u ID recs - Discussed with Dr. [address] PGY1
[2018-04-29 11:50] LABS: URINE APPEARANCE SL CLOUDY (CLEAR); URINE BILIRUBIN MODERATE (NEGATIVE); URINE BLOOD NEGATIVE (NEGATIVE); URINE COLOR YELLOW (YELLOW); URINE GLUCOSE (UA) NEGATIVE (NEGATIVE); URINE LEUKOCYTE ESTERASE NEGATIVE Leu/uL (NEGATIVE); URINE PROTEIN TRACE mg/dL (<30 mg/dL); URINE UROBILINOGEN 0.2 E.U./dL (<1 E.U./dL)
[2018-04-29 11:55] LABS: URINE RBC NEGATIVE /hpf (0-2); URINE WBC NEGATIVE /hpf (0-6)
[2018-04-29 11:56] LABS: URINE BACTERIA FEW (NEG); URINE COARSE GRANULAR CAST MOD /hpf (0-2); URINE FINE GRANULAR CAST 0 - 2 /hpf (0-2)
--- NOTE | 2018-04-29 12:21 | CP.PCM.PN ---
Subjective - Date & Time of Evaluation Date of Evaluation: 04/29/18 Time of Evaluation: 12:18 - Subjective Subjective: GENERAL SURGERY PROGRESS NOTE FOR DR. CHAVEZ Patient seen and examined at bedside. No acute events overnight. Patient still complains of sharp pain in LLE thats alleviated with analgesics. Pt is undergoing pt and reports she is able to walk without cane. She denies fever, chills, chest pain, SOB,numbness, tingling or weakness. Objective - Vital Signs/Intake and Output Vital Signs (last 24 hours): Temp Pulse Resp BP Pulse Ox 100.2 F H 113 H 26 H 110/66 100 04/29/18 10:20 04/29/18 10:20 04/29/18 08:00 04/29/18 10:15 04/29/18 10:20 Intake and Output: 04/29/18 04/29/18 06:59 18:59 Intake Total 845 2422 Output Total 2225 Balance 845 197 - Medications Medications: Current Medications Atovaquone (Mepron) 750 mg PO BID JEROME PRN Reason: Protocol Last Admin: 04/29/18 09:28 Dose: Not Given Propofol (Diprivan) 1,000 mg in 100 mls @ 1.793 mls/hr IV .Q24H PRN; Protocol; 5 MCG/KG/MIN PRN Reason: TITRATE PER MD ORDER Last Titration: 04/29/18 09:10 Dose: 0 mcg/kg/min, 0 mls/hr NOREPINEPHRINE BIT/0.9 % NACL (Levophed 4 Mg/ 250 Ml Ns Premixed) 4 mg in 250 mls @ 15 mls/hr IV .[id number] PRN; Protocol; 4 MCG/MIN PRN Reason: TITRATE PER MD ORDER Last Titration: 04/29/18 07:30 Dose: 0 mcg/min, 0 mls/hr Potassium Chloride (Potassium Chloride 20 Meq/100 Ml) 20 meq in 100 mls @ 50 mls/hr IVPB Q2H [facility] Stop: 04/29/18 19:29 Last Admin: 04/29/18 10:49 Dose: 50 mls/hr Dexmedetomidine HCl (Precedex 400mcg/100ml) 400 mcg in 100 mls @ 2.948 mls/hr IV .Q24H PRN; Protocol; 0.2 MCG/KG/HR PRN Reason: Agitation Last Titration: 04/29/18 11:11 Dose: 0.4 mcg/kg/hr, 5.897 mls/hr Lactated Ringer's (Lactated Ringer's) 1,000 mls @ 150 mls/hr IV .Q6H40M [facility] Last Admin: 04/29/18 10:42 Dose: 150 mls/hr Pantoprazole Sodium 40 mg/ (Dextrose) 100 mls @ 20 mls/hr IV .Q5H [facility] Isoniazid (Niazid) 300 mg PO DAILY [facility] PRN Reason: Protocol Last Admin: 04/29/18 09:28 Dose: Not Given Pyrazinamide (Pyrazinamide) 1,000 mg PO DAILY [facility] PRN Reason: Protocol Last Admin: 04/29/18 09:28 Dose: Not Given Pyridoxine HCl (Vitamin B6 50 Mg Tab) 100 mg PO DAILY [facility] Last Admin: 04/29/18 09:27 Dose: Not Given Rifampin (Rifampin Cap) 600 mg PO DAILY [facility] PRN Reason: Protocol Last Admin: 04/29/18 09:28 Dose: Not Given - Labs Labs: 04/29/18 10:40 04/29/18 05:50 PT 13.5 SECONDS (9.4-12.5) H 04/29/18 05:50 INR 1.17 (0.93-1.08) H 04/29/18 05:50 APTT 35.0 Seconds (25.1-36.5) 04/28/18 12:30
[2018-04-29] MEDS ORDERED: Midazolam 100 mg/100ml in NS 100 MG/100 ML SOL IV PRN (13:25)
[2018-04-29] MEDS ORDERED: Vancomycin 1gm in NS 250ml 1 GM/250 ML BAG IVPB SCH (13:30)
[2018-04-29] MEDS ORDERED: Emtricitabine-Tenofovir 200 mg-300 mg Tab PO SCH (13:45)
--- NOTE | 2018-04-29 13:54 | CP.PCM.CON ---
History of Present Illness - History of Present Illness History of Present Illness: 52 year old male with PMH of HIV/AIDS, disseminated tuberculosis (lungs, bone marrow) diagnosed in March 2018 at [facility] (started on Rifampin, INH and PZA, was on Ethambutol but stopped by Chest clinic), cachexia , history of syphilis (December 2017), S/P inguinal hernia repair was brought to [facility] [facility] because of acute GI bleeding with hematemesis. The patient was noted to be very weak there and EGD was done showing duodenal bulb fistula which was refractory to endoscopic treatment. He was transferred to for embolization which he underwent yesterday and was found to have a mycotic aneurysm in the duodenal bulb area. He is currently on the ventilator, on vasopressor support and is having post-op fevers. ROS is unobtainable because of the patient's medical condition. Infectious diseases consult is requested to further evaluate and manage. Review of Systems - Review of Systems Systems not reviewed;Unavailable: Intubated Past Patient History - Infectious Disease Hx of Infectious Diseases: None (see chart) - Tetanus Immunizations Tetanus Immunization: Unknown - Past Medical History & Family History Past Medical History?: Yes - Past Social History Smoking Status: Never Smoked Chewing Tobacco Use: No - CARDIAC Hx Cardiac Disorders: No - PULMONARY Hx Respiratory Disorders: No - NEUROLOGICAL Hx Neurological Disorder: No - HEENT Hx HEENT Problems: No - RENAL Hx Chronic Kidney Disease: No - ENDOCRINE/METABOLIC Hx Endocrine Disorders: No - HEMATOLOGICAL/ONCOLOGICAL Hx AIDS: Yes Hx Human Immunodeficiency Virus (HIV): Yes - INTEGUMENTARY Hx Dermatological Problems: No - MUSCULOSKELETAL/RHEUMATOLOGICAL Hx Musculoskeletal Disorders: No Hx Falls: Yes Other/Comment: TB inolving the bone - GASTROINTESTINAL Hx Pancreatitis: Yes - GENITOURINARY/GYNECOLOGICAL Hx Genitourinary Disorders: No - PSYCHIATRIC Hx Psychophysiologic Disorder: No Hx Substance Use: (Patient Unable to Answer) - SURGICAL HISTORY Hx Surgeries: Yes Other/Comment: hx of hernia repair (inguial hernia) - ANESTHESIA Hx Anesthesia: Yes Hx Anesthesia Reactions: No Hx Malignant Hyperthermia: No Meds Allergies/Adverse Reactions: Allergies Allergy/AdvReac Type Severity Reaction Status Date / Time No Known Allergies Allergy Verified 04/26/18 12:14 Physical Exam - Constitutional Appears: Other (intubated, on vasopressor support) - Head Exam Head Exam: NORMAL INSPECTION - ENT Exam Additional comments: ET tube in place - Respiratory Exam Respiratory Exam: Decreased Breath Sounds - Cardiovascular Exam Cardiovascular Exam: +S1, +S2 - GI/Abdominal Exam GI & Abdominal Exam: Soft. absent: Tenderness Results - Labs Result Diagrams: 04/29/18 10:40 04/29/18 05:50 Labs: Laboratory Results - last 24 hr 04/28/18 04/28/18 04/28/18 12:30 12:30 12:30 WBC 2.7 L* RBC 2.68 L Hgb 8.2 L Hct 22.9 L MCV 85.4 MCH 30.6 MCHC 35.8 RDW 16.6 H Plt Count 67 L MPV 10.1 Gran % 77.5 H Lymph % (Auto) 15.9 L Warren % (Auto) 4.4 Eos % (Auto) 1.8 Baso % (Auto) 0.4 Gran # 2.10 Lymph # (Auto) 0.4 L Warren # (Auto) 0.1 Eos # (Auto) 0.1 Baso # (Auto) 0.01 PT 13.6 H INR 1.18 H APTT 35.0 pO2 148 H VBG pH 7.32 VBG pCO2 38.0 L VBG HCO3 19.6 L VBG Total CO2 20.8 L VBG O2 Sat (Calc) 100.3 H VBG Base Excess -6.0 L VBG Potassium 3.5 L Sodium 141.0 Chloride 119.0 H Glucose 104 Lactate 1.3 FiO2 21.0 Potassium Carbon Dioxide Anion Gap BUN Creatinine Est GFR ( Amer) Est GFR (Non-Af Amer) Random Glucose Calcium Total Bilirubin AST ALT Alkaline Phosphatase Total Protein Albumin Globulin Albumin/Globulin Ratio Venous Blood Potassium 3.5 L 04/28/18 12:30 WBC RBC Hgb Hct MCV MCH MCHC RDW Plt Count MPV Gran % Lymph % (Auto) Warren % (Auto) Eos % (Auto) Baso % (Auto) Gran # Lymph # (Auto) Warren # (Auto) Eos # (Auto) Baso # (Auto) PT INR APTT pO2 VBG pH VBG pCO2 VBG HCO3 VBG Total CO2 VBG O2 Sat (Calc) VBG Base Excess VBG Potassium Sodium 143 Chloride 118 H Glucose Lactate FiO2 Potassium 3.5 L Carbon Dioxide 19 L Anion Gap 10 BUN 34 H Creatinine 1.0 Est GFR ( Amer) > 60 Est GFR (Non-Af Amer) > 60 Random Glucose 102 Calcium 9.8 Total Bilirubin 4.8 H AST 51 ALT 37 Alkaline Phosphatase 140 H D Total Protein 4.4 L Albumin 1.4 L Globulin 3.0 Albumin/Globulin Ratio 0.5 L Venous Blood Potassium Assessment & Plan - Assessment and Plan (Free Text) Plan: Assessment Systemic Inflammatory response syndrome with VDRF and shock, consider due to duodenal bulb fistula with mycotic aneurysm with GI bleeding, R/O septic shock from infected mycotic aneurysm in the duodenal bulb area with fistula S/P embolization HIV/AIDS, now with CD4 count 86 on ART disseminated tuberculosis (lungs, bone marrow) diagnosed in March 2018 at [facility] (started on Rifampin, INH and PZA, was on Ethambutol but stopped by Chest clinic) cachexia history of syphilis (December 2017) S/P inguinal hernia repair Plan Mycotic aneurysms may be associated with endovascular infection (in this AIDS patient, Salmonella should be ruled out) - started patient on Merrem and will add Vancomycin pending blood cx (04/26 blood cx from [facility] are negative so far but we have repeated 2 sets here in [facility]) will continue ART (double dose Isentress since patient is on Rifampin and Truvada), PJP prophylaxis will continue Rifampin, INH, PZA for disseminated TB (bone marrow, lungs) - will check sputum AFB x 3 to see if patient is still infective patient is in critical condition and prognosis is guarded at best discussed with Shivani will also check RPR and serum Crypt Ag
[2018-04-29] MEDS ORDERED: Meropenem IV 1 gm in NS 50 ML IVPB SCH (14:00)
[2018-04-29 14:25] LABS: BLOOD UREA NITROGEN 22 mg/dL (7-21); CALCIUM 9.1 mg/dL (8.4-10.5); GFR AFRICAN-AMERICAN > 60; GFR NON-AFRICAN AMERICAN > 60
--- NOTE | 2018-04-29 14:31 | CP.CCUPN ---
<Gregory Hope - Last Filed: 04/29/18 16:49> CCU Subjective - Physician Review Subjective (Free Text): Gregory Hope DO PGY-1, ICU Progress note for Dr. Parrish Pt seen and examined at bedside. Propofol gtt was discontinued prior to interview, but a reliable ROS was unobtainable due to sedation and intubation. Overnight, Pt had a fever (tmax 100.6), which was treated with ice packs to the axillary and groin areas. Pt has been on Levophed 2 mcg/min: SBP has been 90s- 100s, DBP has been in the 60s. Pt made 2100 mL of urine via hubbard catheter. No bowel movements. Pt produced 125 mL of dark blood via OGT. Pt received 2 units of pRBCs and 2 units of PLTs last night. CCU Objective - Vital Signs / Intake & Output Vital Signs (Last 4 hours): Vital Signs Pulse 04/29/18 12:00 104 H Intake and Output (Last 8hrs): Intake & Output 04/28/18 04/29/18 04/29/18 22:59 06:59 14:59 Intake Total 4615 100 2468 Output Total 1650 2225 Balance 2965 100 243 Weight 58.967 kg Intake: IV 2865 100 2468 Left Forearm 140 Right Femoral 2810 1890 Right Forearm 240 Oral 0 Blood Product 1550 Red Blood Cells Cpd As1 325 Lr Unit [id number] Red Blood Cells Cpd As1 320 Lr Unit [id number] Other 200 Red Blood Cells Cpd As1 100 Lr Unit [id number] Output: Gastric Amount 125 Stomach 125 Urine 1650 2100 Urethral (Hubbard) 1650 2100 Other: # Bowel Movements 1 0 - Physical Exam Head: Positive for: Atraumatic, Normocephalic Pupils: Positive for: PERRL Extroacular Muscles: Positive for: EOMI Conjunctiva: Positive for: Icteric (mild) Mouth: Positive for: Moist Mucous Membranes, Other ((+) OGT with 250 mL of dark blood in container) Nose (Internal): Positive for: No Active Bleeding Respiratory/Chest: Positive for: Clear to Auscultation, Other (Pt is intubatedl ; PS 5/5 50%. tidal volumes in the high 300s) Cardiovascular: Positive for: Normal S1, S2, Tachycardic. Negative for: Murmurs Abdomen: Positive for: Tenderness (diffuse), Distention (not rigid), Normal Bowel Sounds, Guarding (voluntary grimacing on palpation of abdomen) Upper Extremity: Positive for: Edema (bilateral, nonpitting) Lower Extremity: Positive for: Edema (bilateral, nonpitting) Neurological: Positive for: Motor Func Grossly Intact (follows simple commands) , Other (Pt is drowsy but arousable, and remains intubated. Follows commands.) Psychiatric: Positive for: Other (drowsy) - Medications Active Medications: Active Medications Generic Name Dose Route Start Last Admin Trade Name Freq PRN Reason Stop Dose Admin Atovaquone 750 mg 04/28/18 18:00 04/29/18 09:28 Mepron PO Not Given BID [facility] Protocol Emtricitabine/Tenofovir 1 tab 04/29/18 13:45 Truvada 200 Mg-300 Mg PO DAILY [facility] Protocol Propofol 1,000 mg in 100 mls @ 1.793 mls/hr 04/28/18 15:08 04/29/18 09:10 Diprivan IV 0 mcg/kg/min .Q24H PRN 0 mls/hr TITRATE PER MD ORDER Titration Protocol 5 MCG/KG/MIN NOREPINEPHRINE BIT/0.9 % NACL 4 mg in 250 mls @ 15 mls/hr 04/28/18 17:35 14:15 Levophed 4 Mg/ 250 Ml Ns Premixed IV 10 mcg/min .[id number] PRN 37.5 mls/hr TITRATE PER MD ORDER Titration Protocol 4 MCG/MIN Potassium Chloride 20 meq in 100 mls @ 50 mls/hr 04/29/18 07:30 04/29/18 13: 22 Potassium Chloride 20 Meq/100 Ml IVPB 04/29/18 19:29 50 mls/hr Q2H [facility] Administration Dexmedetomidine HCl 400 mcg in 100 mls @ 2.948 mls/hr 04/29/18 10:25 11:11 Precedex 400mcg/100ml IV 0.4 mcg/kg/hr .Q24H PRN 5.897 mls/hr Agitation Titration Protocol 0.2 MCG/KG/HR Lactated Ringer's 1,000 mls @ 150 mls/hr 04/29/18 10:30 04/29/18 10:42 Lactated Ringer's IV 150 mls/hr .[id number] [facility] Administration Pantoprazole Sodium 40 mg/ 100 mls @ 20 mls/hr 04/29/18 11:20 04/29/18 12:39 Dextrose IV 20 mls/hr .Q5H [facility] Administration Midazolam 100 mg/100ml in NS 100 mg in 100 mls @ 1 mls/hr 04/29/18 13:25 13:59 Midazolam 100 Mg/100ml In Ns IV 1 mg/hr .Q24H PRN 1 mls/hr Sedation Administration Protocol 1 MG/HR Meropenem 50 mls @ 100 mls/hr 04/29/18 14:00 Merrem Iv 1 Gm Premix IVPB Q8 [facility] Protocol Vancomycin HCl 1 gm in 250 mls @ 167 mls/hr 04/29/18 13:30 Vancomycin 1gm IVPB Q12H [facility] Protocol Penicillin G Potassium 4 mu/ 50 mls @ 100 mls/hr 04/29/18 16:00 Sodium Chloride IVPB Q4 [facility] Protocol Isoniazid 300 mg 04/28/18 13:45 04/29/18 09:28 Niazid PO Not Given DAILY [facility] Protocol Pyrazinamide 1,000 mg 04/28/18 13:45 04/29/18 09:28 Pyrazinamide PO Not Given DAILY [facility] Protocol Pyridoxine HCl 100 mg 04/29/18 10:00 04/29/18 09:27 Vitamin B6 50 Mg Tab PO Not Given DAILY [facility] Raltegravir 800 mg 04/29/18 18:00 Isentress PO BID [facility] Protocol Rifampin 600 mg 04/28/18 13:45 04/29/18 09:28 Rifampin Cap PO Not Given DAILY [facility] Protocol Trimethoprim/Sulfamethoxazole 1 tab 05/01/18 10:00 Bactrim Ds Tab PO MWF [facility] Protocol - Patient Studies Lab Studies: Microbiology Studies 04/28/18 15:40 Blood Culture - Preliminary Blood Gram Negative Sukhjinder Gram Stain - Final Lab Studies 04/29/18 04/29/18 04/29/18 Range/Units 11:46 10:40 10:40 WBC 3.7 L (4.5-11.0) 10^3/ul RBC 3.08 L (3.5-6.1) 10^6/uL Hgb 9.3 L (14.0-18.0) g/dL Hct 25.9 L (42.0-52.0) % MCV 84.1 (80.0-105.0) fl MCH 30.2 (25.0-35.0) pg MCHC 35.9 (31.0-37.0) g/dl RDW 16.5 H (11.5-14.5) % Plt Count 67 L (120.0-450.0) 10^3/uL MPV 10.1 (7.0-11.0) fl Gran % 81.2 H (50.0-68.0) % Lymph % (Auto) 11.6 L (22.0-35.0) % Ross % (Auto) 6.2 H (1.0-6.0) % Eos % (Auto) 0.5 L (1.5-5.0) % Baso % (Auto) 0.5 (0.0-3.0) % Gran # 3.02 (1.4-6.5) Lymph # (Auto) 0.4 L (1.2-3.4) Ross # (Auto) 0.2 (0.1-0.6) Eos # (Auto) 0.0 (0.0-0.7) Baso # (Auto) 0.02 (0.0-2.0) K/mm3 Neutrophils % (Manual) (50.0-70.0) % Band Neutrophils % (0-2) % Lymphocytes % (Manual) (22.0-35.0) % Monocytes % (Manual) (1.0-6.0) % Eosinophils % (Manual) (0.0-3.0) % Metamyelocytes % % Platelet Evaluation (NORMAL) Poikilocytosis (manual Anisocytosis (manual) PT (9.4-12.5) SECONDS INR (0.93-1.08) pCO2 (35-45) mm/Hg pO2 122 H (80-100) mm/Hg HCO3 (21-28) mmol/L ABG pH (7.35-7.45) ABG Total CO2 (22-28) mmol.L ABG O2 Saturation (95-98) % ABG O2 Content (15-23) ML/dl ABG Base Excess (-2.0-3.0) mmol/L ABG Hemoglobin (11.7-17.4) g/dL ABG Carboxyhemoglobin (0.5-1.5) % POC ABG HHb (Measured) (0-5) % ABG Methemoglobin (0.0-3.0) % ABG O2 Capacity (16-24) mL/dl VBG pH 7.38 (7.32-7.43) VBG pCO2 29.0 L (40-60) VBG HCO3 17.2 L (21-28) mmol/l VBG Total CO2 18.1 L (22-28) mmol.L VBG O2 Sat (Calc) 99.7 H (40-65) % VBG Base Excess -6.6 L (0.0-2.0) mmol/L VBG Potassium 3.0 L (3.6-5.2) mmol/L Hgb O2 Saturation (95.0-98.0) % Glucose 76 (75-110) mg/dl Lactate 1.5 (0.7-2.1) mmol/L FiO2 21.0 % Sodium 148.0 (132-148) mmol/L Potassium (3.6-5.0) mmol/L Chloride 124.0 H (98-107) mmol/L Carbon Dioxide (21-33) mmol/L Anion Gap (10-20) BUN (7-21) mg/dL Creatinine (0.8-1.5) mg/dl Est GFR ( Amer) Est GFR (Non-Af Amer) POC Glucose (mg/dL) (65-110) mg/dL Random Glucose (70-110) mg/dL Calcium (8.4-10.5) mg/dL Phosphorus (2.5-4.5) mg/dL Magnesium (1.7-2.2) mg/dL Total Bilirubin (0.2-1.3) mg/dL AST (17-59) U/L ALT (7-56) U/L Alkaline Phosphatase (38-126) U/L Total Protein (5.8-8.3) g/dL Albumin (3.0-4.8) g/dL Globulin gm/dL Albumin/Globulin Ratio (1.1-1.8) Venous Blood Potassium 3.0 L (3.6-5.2) mmol/L Urine Color Yellow (YELLOW) Urine Appearance Sl cloudy (CLEAR) Urine pH 6.0 (4.7-8.0) Ur Specific [place] 1.020 (1.005-1.035) Urine Protein Trace H (<30 mg/dL) mg/dL Urine Glucose (UA) Negative (NEGATIVE) mg/dL Urine Ketones Negative (NEGATIVE) mg/dL Urine Blood Negative (NEGATIVE) Urine Nitrate Negative (NEGATIVE) Urine Bilirubin Moderate H (NEGATIVE) Urine Urobilinogen 0.2 (<1 E.U./dL) E.U./dL Ur Leukocyte Esterase Negative (NEGATIVE) [place]/uL Urine RBC Negative (0-2) /hpf Urine WBC Negative (0-6) /hpf Urine Bacteria Few (NEG) Fine Granular Casts 0 - 2 (0-2) /hpf Coarse Granular Casts Mod H (0-2) /hpf Blood Type Antibody Screen Crossmatch BBK History Checked 04/29/18 04/29/18 04/29/18 Range/Units 05:50 05:50 05:50 WBC 3.5 L (4.5-11.0) 10^3/ul RBC 2.93 L (3.5-6.1) 10^6/uL Hgb 8.8 L (14.0-18.0) g/dL Hct 24.7 L (42.0-52.0) % MCV 84.3 (80.0-105.0) fl MCH 30.0 (25.0-35.0) pg MCHC 35.6 (31.0-37.0) g/dl RDW 16.2 H (11.5-14.5) % Plt Count 75 L (120.0-450.0) 10^3/uL MPV 10.2 (7.0-11.0) fl Gran % 79.4 H (50.0-68.0) % Lymph % (Auto) 13.3 L (22.0-35.0) % Ross % (Auto) 5.9 (1.0-6.0) % Eos % (Auto) 1.1 L (1.5-5.0) % Baso % (Auto) 0.3 (0.0-3.0) % Gran # 2.80 (1.4-6.5) Lymph # (Auto) 0.5 L (1.2-3.4) Ross # (Auto) 0.2 (0.1-0.6) Eos # (Auto) 0.0 (0.0-0.7) Baso # (Auto) 0.01 (0.0-2.0) K/mm3 Neutrophils % (Manual) (50.0-70.0) % Band Neutrophils % (0-2) % Lymphocytes % (Manual) (22.0-35.0) % Monocytes % (Manual) (1.0-6.0) % Eosinophils % (Manual) (0.0-3.0) % Metamyelocytes % % Platelet Evaluation (NORMAL) Poikilocytosis (manual Anisocytosis (manual) PT 13.5 H (9.4-12.5) SECONDS INR 1.17 H (0.93-1.08) pCO2 (35-45) mm/Hg pO2 (80-100) mm/Hg HCO3 (21-28) mmol/L ABG pH (7.35-7.45) ABG Total CO2 (22-28) mmol.L ABG O2 Saturation (95-98) % ABG O2 Content (15-23) ML/dl ABG Base Excess (-2.0-3.0) mmol/L ABG Hemoglobin (11.7-17.4) g/dL ABG Carboxyhemoglobin (0.5-1.5) % POC ABG HHb (Measured) (0-5) % ABG Methemoglobin (0.0-3.0) % ABG O2 Capacity (16-24) mL/dl VBG pH (7.32-7.43) VBG pCO2 (40-60) VBG HCO3 (21-28) mmol/l VBG Total CO2 (22-28) mmol.L VBG O2 Sat (Calc) (40-65) % VBG Base Excess (0.0-2.0) mmol/L VBG Potassium (3.6-5.2) mmol/L Hgb O2 Saturation (95.0-98.0) % Glucose (75-110) mg/dl Lactate (0.7-2.1) mmol/L FiO2 % Sodium 148 (132-148) mmol/L Potassium 2.9 L* (3.6-5.0) mmol/L Chloride 121 H (98-107) mmol/L Carbon Dioxide 18 L (21-33) mmol/L Anion Gap 11 (10-20) BUN 25 H (7-21) mg/dL Creatinine 0.9 (0.8-1.5) mg/dl Est GFR ( Amer) > 60 Est GFR (Non-Af Amer) > 60 POC Glucose (mg/dL) (65-110) mg/dL Random Glucose 87 (70-110) mg/dL Calcium 9.3 (8.4-10.5) mg/dL Phosphorus 2.9 (2.5-4.5) mg/dL Magnesium 1.8 (1.7-2.2) mg/dL Total Bilirubin 6.1 H (0.2-1.3) mg/dL AST 73 H D (17-59) U/L ALT 31 (7-56) U/L Alkaline Phosphatase 136 H (38-126) U/L Total Protein 4.9 L (5.8-8.3) g/dL Albumin 1.7 L (3.0-4.8) g/dL Globulin 3.1 gm/dL Albumin/Globulin Ratio 0.6 L (1.1-1.8) Venous Blood Potassium (3.6-5.2) mmol/L Urine Color (YELLOW) Urine Appearance (CLEAR) Urine pH (4.7-8.0) Ur Specific [place] (1.005-1.035) Urine Protein (<30 mg/dL) mg/dL Urine Glucose (UA) (NEGATIVE) mg/dL Urine Ketones (NEGATIVE) mg/dL Urine Blood (NEGATIVE) Urine Nitrate (NEGATIVE) Urine Bilirubin (NEGATIVE) Urine Urobilinogen (<1 E.U./dL) E.U./dL Ur Leukocyte Esterase (NEGATIVE) [place]/uL Urine RBC (0-2) /hpf Urine WBC (0-6) /hpf Urine Bacteria (NEG) Fine Granular Casts (0-2) /hpf Coarse Granular Casts (0-2) /hpf Blood Type Antibody Screen Crossmatch BBK History Checked 04/29/18 04/29/18 04/29/18 Range/Units 05:10 02:11 02:05 WBC 3.5 L (4.5-11.0) 10^3/ul RBC 2.87 L (3.5-6.1) 10^6/uL Hgb 8.7 L (14.0-18.0) g/dL Hct 24.2 L (42.0-52.0) % MCV 84.3 (80.0-105.0) fl MCH 30.3 (25.0-35.0) pg MCHC 36.0 (31.0-37.0) g/dl RDW 16.1 H (11.5-14.5) % Plt Count 82 L (120.0-450.0) 10^3/uL MPV 10.2 (7.0-11.0) fl Gran % 77.0 H (50.0-68.0) % Lymph % (Auto) 15.1 L (22.0-35.0) % Ross % (Auto) 6.7 H (1.0-6.0) % Eos % (Auto) 0.9 L (1.5-5.0) % Baso % (Auto) 0.3 (0.0-3.0) % Gran # 2.66 (1.4-6.5) Lymph # (Auto) 0.5 L (1.2-3.4) Ross # (Auto) 0.2 (0.1-0.6) Eos # (Auto) 0.0 (0.0-0.7) Baso # (Auto) 0.01 (0.0-2.0) K/mm3 Neutrophils % (Manual) 58 (50.0-70.0) % Band Neutrophils % 16 H* (0-2) % Lymphocytes % (Manual) 19 L (22.0-35.0) % Monocytes % (Manual) 5 (1.0-6.0) % Eosinophils % (Manual) 1 (0.0-3.0) % Metamyelocytes % 1 % Platelet Evaluation Low (NORMAL) Poikilocytosis (manual Slight Anisocytosis (manual) Slight PT (9.4-12.5) SECONDS INR (0.93-1.08) pCO2 27 L (35-45) mm/Hg pO2 173.0 H (80-100) mm/Hg HCO3 16.7 L (21-28) mmol/L ABG pH 7.40 (7.35-7.45) ABG Total CO2 17.5 L (22-28) mmol.L ABG O2 Saturation 100.7 H (95-98) % ABG O2 Content 11.9 L (15-23) ML/dl ABG Base Excess -7.2 L (-2.0-3.0) mmol/L ABG Hemoglobin 8.3 L (11.7-17.4) g/dL ABG Carboxyhemoglobin 1.8 H (0.5-1.5) % POC ABG HHb (Measured) -0.7 L (0-5) % ABG Methemoglobin 0.6 (0.0-3.0) % ABG O2 Capacity 11.8 L (16-24) mL/dl VBG pH (7.32-7.43) VBG pCO2 (40-60) VBG HCO3 (21-28) mmol/l VBG Total CO2 (22-28) mmol.L VBG O2 Sat (Calc) (40-65) % VBG Base Excess (0.0-2.0) mmol/L VBG Potassium (3.6-5.2) mmol/L Hgb O2 Saturation 98.3 H (95.0-98.0) % Glucose (75-110) mg/dl Lactate (0.7-2.1) mmol/L FiO2 50.0 % Sodium (132-148) mmol/L Potassium (3.6-5.0) mmol/L Chloride (98-107) mmol/L Carbon Dioxide (21-33) mmol/L Anion Gap (10-20) BUN (7-21) mg/dL Creatinine (0.8-1.5) mg/dl Est GFR ( Amer) Est GFR (Non-Af Amer) POC Glucose (mg/dL) 83 (65-110) mg/dL Random Glucose (70-110) mg/dL Calcium (8.4-10.5) mg/dL Phosphorus (2.5-4.5) mg/dL Magnesium (1.7-2.2) mg/dL Total Bilirubin (0.2-1.3) mg/dL AST (17-59) U/L ALT (7-56) U/L Alkaline Phosphatase (38-126) U/L Total Protein (5.8-8.3) g/dL Albumin (3.0-4.8) g/dL Globulin gm/dL Albumin/Globulin Ratio (1.1-1.8) Venous Blood Potassium (3.6-5.2) mmol/L Urine Color (YELLOW) Urine Appearance (CLEAR) Urine pH (4.7-8.0) Ur Specific [place] (1.005-1.035) Urine Protein (<30 mg/dL) mg/dL Urine Glucose (UA) (NEGATIVE) mg/dL Urine Ketones (NEGATIVE) mg/dL Urine Blood (NEGATIVE) Urine Nitrate (NEGATIVE) Urine Bilirubin (NEGATIVE) Urine Urobilinogen (<1 E.U./dL) E.U./dL Ur Leukocyte Esterase (NEGATIVE) [place]/uL Urine RBC (0-2) /hpf Urine WBC (0-6) /hpf Urine Bacteria (NEG) Fine Granular Casts (0-2) /hpf Coarse Granular Casts (0-2) /hpf Blood Type Antibody Screen Crossmatch BBK History Checked 04/28/18 04/28/18 04/28/18 Range/Units 22:18 22:18 16:40 WBC 3.4 L D (4.5-11.0) 10^3/ul RBC 2.86 L (3.5-6.1) 10^6/uL Hgb 8.7 L (14.0-18.0) g/dL Hct 24.3 L (42.0-52.0) % MCV 85.0 (80.0-105.0) fl MCH 30.4 (25.0-35.0) pg MCHC 35.8 (31.0-37.0) g/dl RDW 15.8 H (11.5-14.5) % Plt Count 89 L (120.0-450.0) 10^3/uL MPV 10.7 (7.0-11.0) fl Gran % 75.9 H (50.0-68.0) % Lymph % (Auto) 14.2 L (22.0-35.0) % Ross % (Auto) 8.4 H (1.0-6.0) % Eos % (Auto) 0.9 L (1.5-5.0) % Baso % (Auto) 0.6 (0.0-3.0) % Gran # 2.61 (1.4-6.5) Lymph # (Auto) 0.5 L (1.2-3.4) Ross # (Auto) 0.3 (0.1-0.6) Eos # (Auto) 0.0 (0.0-0.7) Baso # (Auto) 0.02 (0.0-2.0) K/mm3 Neutrophils % (Manual) (50.0-70.0) % Band Neutrophils % (0-2) % Lymphocytes % (Manual) (22.0-35.0) % Monocytes % (Manual) (1.0-6.0) % Eosinophils % (Manual) (0.0-3.0) % Metamyelocytes % % Platelet Evaluation (NORMAL) Poikilocytosis (manual Anisocytosis (manual) PT 13.6 H (9.4-12.5) SECONDS INR 1.19 H (0.93-1.08) pCO2 (35-45) mm/Hg pO2 (80-100) mm/Hg HCO3 (21-28) mmol/L ABG pH (7.35-7.45) ABG Total CO2 (22-28) mmol.L ABG O2 Saturation (95-98) % ABG O2 Content (15-23) ML/dl ABG Base Excess (-2.0-3.0) mmol/L ABG Hemoglobin (11.7-17.4) g/dL ABG Carboxyhemoglobin (0.5-1.5) % POC ABG HHb (Measured) (0-5) % ABG Methemoglobin (0.0-3.0) % ABG O2 Capacity (16-24) mL/dl VBG pH (7.32-7.43) VBG pCO2 (40-60) VBG HCO3 (21-28) mmol/l VBG Total CO2 (22-28) mmol.L VBG O2 Sat (Calc) (40-65) % VBG Base Excess (0.0-2.0) mmol/L VBG Potassium (3.6-5.2) mmol/L Hgb O2 Saturation (95.0-98.0) % Glucose (75-110) mg/dl Lactate (0.7-2.1) mmol/L FiO2 % Sodium 144 (132-148) mmol/L Potassium 3.1 L (3.6-5.0) mmol/L Chloride 119 H (98-107) mmol/L Carbon Dioxide 17 L (21-33) mmol/L Anion Gap 12 (10-20) BUN 29 H (7-21) mg/dL Creatinine 0.9 (0.8-1.5) mg/dl Est GFR ( Amer) > 60 Est GFR (Non-Af Amer) > 60 POC Glucose (mg/dL) (65-110) mg/dL Random Glucose 94 (70-110) mg/dL Calcium 9.3 (8.4-10.5) mg/dL Phosphorus (2.5-4.5) mg/dL Magnesium (1.7-2.2) mg/dL Total Bilirubin 4.9 H (0.2-1.3) mg/dL AST 48 (17-59) U/L ALT 35 (7-56) U/L Alkaline Phosphatase 129 H (38-126) U/L Total Protein 4.3 L (5.8-8.3) g/dL Albumin 1.5 L (3.0-4.8) g/dL Globulin 2.8 gm/dL Albumin/Globulin Ratio 0.5 L (1.1-1.8) Venous Blood Potassium (3.6-5.2) mmol/L Urine Color (YELLOW) Urine Appearance (CLEAR) Urine pH (4.7-8.0) Ur Specific [place] (1.005-1.035) Urine Protein (<30 mg/dL) mg/dL Urine Glucose (UA) (NEGATIVE) mg/dL Urine Ketones (NEGATIVE) mg/dL Urine Blood (NEGATIVE) Urine Nitrate (NEGATIVE) Urine Bilirubin (NEGATIVE) Urine Urobilinogen (<1 E.U./dL) E.U./dL Ur Leukocyte Esterase (NEGATIVE) [place]/uL Urine RBC (0-2) /hpf Urine WBC (0-6) /hpf Urine Bacteria (NEG) Fine Granular Casts (0-2) /hpf Coarse Granular Casts (0-2) /hpf Blood Type Antibody Screen Crossmatch BBK History Checked 04/28/18 04/28/18 04/28/18 Range/Units 16:40 16:40 15:20 WBC 2.5 L* (4.5-11.0) 10^3/ul RBC 2.49 L (3.5-6.1) 10^6/uL Hgb 7.5 L (14.0-18.0) g/dL Hct 21.2 L (42.0-52.0) % MCV 85.1 (80.0-105.0) fl MCH 31.1 (25.0-35.0) pg MCHC 35.4 (31.0-37.0) g/dl RDW 16.5 H (11.5-14.5) % Plt Count 93 L (120.0-450.0) 10^3/uL MPV 9.5 (7.0-11.0) fl Gran % 77.5 H (50.0-68.0) % Lymph % (Auto) 14.1 L (22.0-35.0) % Ross % (Auto) 6.8 H (1.0-6.0) % Eos % (Auto) 1.2 L (1.5-5.0) % Baso % (Auto) 0.4 (0.0-3.0) % Gran # 1.93 (1.4-6.5) Lymph # (Auto) 0.4 L (1.2-3.4) Ross # (Auto) 0.2 (0.1-0.6) Eos # (Auto) 0.0 (0.0-0.7) Baso # (Auto) 0.01 (0.0-2.0) K/mm3 Neutrophils % (Manual) (50.0-70.0) % Band Neutrophils % (0-2) % Lymphocytes % (Manual) (22.0-35.0) % Monocytes % (Manual) (1.0-6.0) % Eosinophils % (Manual) (0.0-3.0) % Metamyelocytes % % Platelet Evaluation (NORMAL) Poikilocytosis (manual Anisocytosis (manual) PT 14.2 H (9.4-12.5) SECONDS INR 1.24 H (0.93-1.08) pCO2 29 L (35-45) mm/Hg pO2 170.0 H (80-100) mm/Hg HCO3 17.2 L (21-28) mmol/L ABG pH 7.38 (7.35-7.45) ABG Total CO2 18.1 L (22-28) mmol.L ABG O2 Saturation 100.4 H (95-98) % ABG O2 Content 11.1 L (15-23) ML/dl ABG Base Excess -7.1 L (-2.0-3.0) mmol/L ABG Hemoglobin 7.8 L (11.7-17.4) g/dL ABG Carboxyhemoglobin 1.5 (0.5-1.5) % POC ABG HHb (Measured) -0.4 L (0-5) % ABG Methemoglobin 0.9 (0.0-3.0) % ABG O2 Capacity 11.1 L (16-24) mL/dl VBG pH (7.32-7.43) VBG pCO2 (40-60) VBG HCO3 (21-28) mmol/l VBG Total CO2 (22-28) mmol.L VBG O2 Sat (Calc) (40-65) % VBG Base Excess (0.0-2.0) mmol/L VBG Potassium (3.6-5.2) mmol/L Hgb O2 Saturation 97.9 (95.0-98.0) % Glucose (75-110) mg/dl Lactate (0.7-2.1) mmol/L FiO2 50.0 % Sodium (132-148) mmol/L Potassium (3.6-5.0) mmol/L Chloride (98-107) mmol/L Carbon Dioxide (21-33) mmol/L Anion Gap (10-20) BUN (7-21) mg/dL Creatinine (0.8-1.5) mg/dl Est GFR ( Amer) Est GFR (Non-Af Amer) POC Glucose (mg/dL) (65-110) mg/dL Random Glucose (70-110) mg/dL Calcium (8.4-10.5) mg/dL Phosphorus (2.5-4.5) mg/dL Magnesium (1.7-2.2) mg/dL Total Bilirubin (0.2-1.3) mg/dL AST (17-59) U/L ALT (7-56) U/L Alkaline Phosphatase (38-126) U/L Total Protein (5.8-8.3) g/dL Albumin (3.0-4.8) g/dL Globulin gm/dL Albumin/Globulin Ratio (1.1-1.8) Venous Blood Potassium (3.6-5.2) mmol/L Urine Color (YELLOW) Urine Appearance (CLEAR) Urine pH (4.7-8.0) Ur Specific [place] (1.005-1.035) Urine Protein (<30 mg/dL) mg/dL Urine Glucose (UA) (NEGATIVE) mg/dL Urine Ketones (NEGATIVE) mg/dL Urine Blood (NEGATIVE) Urine Nitrate (NEGATIVE) Urine Bilirubin (NEGATIVE) Urine Urobilinogen (<1 E.U./dL) E.U./dL Ur Leukocyte Esterase (NEGATIVE) [place]/uL Urine RBC (0-2) /hpf Urine WBC (0-6) /hpf Urine Bacteria (NEG) Fine Granular Casts (0-2) /hpf Coarse Granular Casts (0-2) /hpf Blood Type Antibody Screen Crossmatch BBK History Checked 04/28/18 Range/Units 12:20 WBC (4.5-11.0) 10^3/ul RBC (3.5-6.1) 10^6/uL Hgb (14.0-18.0) g/dL Hct (42.0-52.0) % MCV (80.0-105.0) fl MCH (25.0-35.0) pg MCHC (31.0-37.0) g/dl RDW (11.5-14.5) % Plt Count (120.0-450.0) 10^3/uL MPV (7.0-11.0) fl Gran % (50.0-68.0) % Lymph % (Auto) (22.0-35.0) % Ross % (Auto) (1.0-6.0) % Eos % (Auto) (1.5-5.0) % Baso % (Auto) (0.0-3.0) % Gran # (1.4-6.5) Lymph # (Auto) (1.2-3.4) Ross # (Auto) (0.1-0.6) Eos # (Auto) (0.0-0.7) Baso # (Auto) (0.0-2.0) K/mm3 Neutrophils % (Manual) (50.0-70.0) % Band Neutrophils % (0-2) % Lymphocytes % (Manual) (22.0-35.0) % Monocytes % (Manual) (1.0-6.0) % Eosinophils % (Manual) (0.0-3.0) % Metamyelocytes % % Platelet Evaluation (NORMAL) Poikilocytosis (manual Anisocytosis (manual) PT (9.4-12.5) SECONDS INR (0.93-1.08) pCO2 (35-45) mm/Hg pO2 (80-100) mm/Hg HCO3 (21-28) mmol/L ABG pH (7.35-7.45) ABG Total CO2 (22-28) mmol.L ABG O2 Saturation (95-98) % ABG O2 Content (15-23) ML/dl ABG Base Excess (-2.0-3.0) mmol/L ABG Hemoglobin (11.7-17.4) g/dL ABG Carboxyhemoglobin (0.5-1.5) % POC ABG HHb (Measured) (0-5) % ABG Methemoglobin (0.0-3.0) % ABG O2 Capacity (16-24) mL/dl VBG pH (7.32-7.43) VBG pCO2 (40-60) VBG HCO3 (21-28) mmol/l VBG Total CO2 (22-28) mmol.L VBG O2 Sat (Calc) (40-65) % VBG Base Excess (0.0-2.0) mmol/L VBG Potassium (3.6-5.2) mmol/L Hgb O2 Saturation (95.0-98.0) % Glucose (75-110) mg/dl Lactate (0.7-2.1) mmol/L FiO2 % Sodium (132-148) mmol/L Potassium (3.6-5.0) mmol/L Chloride (98-107) mmol/L Carbon Dioxide (21-33) mmol/L Anion Gap (10-20) BUN (7-21) mg/dL Creatinine (0.8-1.5) mg/dl Est GFR ( Amer) Est GFR (Non-Af Amer) POC Glucose (mg/dL) (65-110) mg/dL Random Glucose (70-110) mg/dL Calcium (8.4-10.5) mg/dL Phosphorus (2.5-4.5) mg/dL Magnesium (1.7-2.2) mg/dL Total Bilirubin (0.2-1.3) mg/dL AST (17-59) U/L ALT (7-56) U/L Alkaline Phosphatase (38-126) U/L Total Protein (5.8-8.3) g/dL Albumin (3.0-4.8) g/dL Globulin gm/dL Albumin/Globulin Ratio (1.1-1.8) Venous Blood Potassium (3.6-5.2) mmol/L Urine Color (YELLOW) Urine Appearance (CLEAR) Urine pH (4.7-8.0) Ur Specific [place] (1.005-1.035) Urine Protein (<30 mg/dL) mg/dL Urine Glucose (UA) (NEGATIVE) mg/dL Urine Ketones (NEGATIVE) mg/dL Urine Blood (NEGATIVE) Urine Nitrate (NEGATIVE) Urine Bilirubin (NEGATIVE) Urine Urobilinogen (<1 E.U./dL) E.U./dL Ur Leukocyte Esterase (NEGATIVE) [place]/uL Urine RBC (0-2) /hpf Urine WBC (0-6) /hpf Urine Bacteria (NEG) Fine Granular Casts (0-2) /hpf Coarse Granular Casts (0-2) /hpf Blood Type A NEGATIVE Antibody Screen Negative Crossmatch See Detail BBK History Checked Patient has bt Laboratory Results - last 24 hr 04/28/18 04/28/18 04/28/18 12:20 15:20 16:40 WBC 2.5 L* RBC 2.49 L Hgb 7.5 L Hct 21.2 L MCV 85.1 MCH 31.1 MCHC 35.4 RDW 16.5 H Plt Count 93 L MPV 9.5 Gran % 77.5 H Lymph % (Auto) 14.1 L Ross % (Auto) 6.8 H Eos % (Auto) 1.2 L Baso % (Auto) 0.4 Gran # 1.93 Lymph # (Auto) 0.4 L Ross # (Auto) 0.2 Eos # (Auto) 0.0 Baso # (Auto) 0.01 Neutrophils % (Manual) Band Neutrophils % Lymphocytes % (Manual) Monocytes % (Manual) Eosinophils % (Manual) Metamyelocytes % Platelet Evaluation Poikilocytosis (manual Anisocytosis (manual) PT INR pCO2 29 L pO2 170.0 H HCO3 17.2 L ABG pH 7.38 ABG Total CO2 18.1 L ABG O2 Saturation 100.4 H ABG O2 Content 11.1 L ABG Base Excess -7.1 L ABG Hemoglobin 7.8 L ABG Carboxyhemoglobin 1.5 POC ABG HHb (Measured) -0.4 L ABG Methemoglobin 0.9 ABG O2 Capacity 11.1 L VBG pH VBG pCO2 VBG HCO3 VBG Total CO2 VBG O2 Sat (Calc) VBG Base Excess VBG Potassium Hgb O2 Saturation 97.9 Glucose Lactate FiO2 50.0 Sodium Potassium Chloride Carbon Dioxide Anion Gap BUN Creatinine Est GFR ( Amer) Est GFR (Non-Af Amer) POC Glucose (mg/dL) Random Glucose Calcium Phosphorus Magnesium Total Bilirubin AST ALT Alkaline Phosphatase Total Protein Albumin Globulin Albumin/Globulin Ratio Venous Blood Potassium Urine Color Urine Appearance Urine pH Ur Specific [place] Urine Protein Urine Glucose (UA) Urine Ketones Urine Blood Urine Nitrate Urine Bilirubin Urine Urobilinogen Ur Leukocyte Esterase Urine RBC Urine WBC Urine Bacteria Fine Granular Casts Coarse Granular Casts Blood Type A NEGATIVE Antibody Screen Negative Crossmatch See Detail BBK History Checked Patient has bt 04/28/18 04/28/18 04/28/18 16:40 16:40 22:18 WBC 3.4 L D RBC 2.86 L Hgb 8.7 L Hct 24.3 L MCV 85.0 MCH 30.4 MCHC 35.8 RDW 15.8 H Plt Count 89 L MPV 10.7 Gran % 75.9 H Lymph % (Auto) 14.2 L Ross % (Auto) 8.4 H Eos % (Auto) 0.9 L Baso % (Auto) 0.6 Gran # 2.61 Lymph # (Auto) 0.5 L Ross # (Auto) 0.3 Eos # (Auto) 0.0 Baso # (Auto) 0.02 Neutrophils % (Manual) Band Neutrophils % Lymphocytes % (Manual) Monocytes % (Manual) Eosinophils % (Manual) Metamyelocytes % Platelet Evaluation Poikilocytosis (manual Anisocytosis (manual) PT 14.2 H INR 1.24 H pCO2 pO2 HCO3 ABG pH ABG Total CO2 ABG O2 Saturation ABG O2 Content ABG Base Excess ABG Hemoglobin ABG Carboxyhemoglobin POC ABG HHb (Measured) ABG Methemoglobin ABG O2 Capacity VBG pH VBG pCO2 VBG HCO3 VBG Total CO2 VBG O2 Sat (Calc) VBG Base Excess VBG Potassium Hgb O2 Saturation Glucose Lactate FiO2 Sodium 144 Potassium 3.1 L Chloride 119 H Carbon Dioxide 17 L Anion Gap 12 BUN 29 H Creatinine 0.9 Est GFR ( Amer) > 60 Est GFR (Non-Af Amer) > 60 POC Glucose (mg/dL) Random Glucose 94 Calcium 9.3 Phosphorus Magnesium Total Bilirubin 4.9 H AST 48 ALT 35 Alkaline Phosphatase 129 H Total Protein 4.3 L Albumin 1.5 L Globulin 2.8 Albumin/Globulin Ratio 0.5 L Venous Blood Potassium Urine Color Urine Appearance Urine pH Ur Specific [place] Urine Protein Urine Glucose (UA) Urine Ketones Urine Blood Urine Nitrate Urine Bilirubin Urine Urobilinogen Ur Leukocyte Esterase Urine RBC Urine WBC Urine Bacteria Fine Granular Casts Coarse Granular Casts Blood Type Antibody Screen Crossmatch BBK History Checked 04/28/18 04/29/18 04/29/18 22:18 02:05 02:11 WBC 3.5 L RBC 2.87 L Hgb 8.7 L Hct 24.2 L MCV 84.3 MCH 30.3 MCHC 36.0 RDW 16.1 H Plt Count 82 L MPV 10.2 Gran % 77.0 H Lymph % (Auto) 15.1 L Ross % (Auto) 6.7 H Eos % (Auto) 0.9 L Baso % (Auto) 0.3 Gran # 2.66 Lymph # (Auto) 0.5 L Ross # (Auto) 0.2 Eos # (Auto) 0.0 Baso # (Auto) 0.01 Neutrophils % (Manual) 58 Band Neutrophils % 16 H* Lymphocytes % (Manual) 19 L Monocytes % (Manual) 5 Eosinophils % (Manual) 1 Metamyelocytes % 1 Platelet Evaluation Low Poikilocytosis (manual Slight Anisocytosis (manual) Slight PT 13.6 H INR 1.19 H pCO2 pO2 HCO3 ABG pH ABG Total CO2 ABG O2 Saturation ABG O2 Content ABG Base Excess ABG Hemoglobin ABG Carboxyhemoglobin POC ABG HHb (Measured) ABG Methemoglobin ABG O2 Capacity VBG pH VBG pCO2 VBG HCO3 VBG Total CO2 VBG O2 Sat (Calc) VBG Base Excess VBG Potassium Hgb O2 Saturation Glucose Lactate FiO2 Sodium Potassium Chloride Carbon Dioxide Anion Gap BUN Creatinine Est GFR ( Amer) Est GFR (Non-Af Amer) POC Glucose (mg/dL) 83 Random Glucose Calcium Phosphorus Magnesium Total Bilirubin AST ALT Alkaline Phosphatase Total Protein Albumin Globulin Albumin/Globulin Ratio Venous Blood Potassium Urine Color Urine Appearance Urine pH Ur Specific [place] Urine Protein Urine Glucose (UA) Urine Ketones Urine Blood Urine Nitrate Urine Bilirubin Urine Urobilinogen Ur Leukocyte Esterase Urine RBC Urine WBC Urine Bacteria Fine Granular Casts Coarse Granular Casts Blood Type Antibody Screen Crossmatch BBK History Checked 04/29/18 04/29/18 04/29/18 05:10 05:50 05:50 WBC 3.5 L RBC 2.93 L Hgb 8.8 L Hct 24.7 L MCV 84.3 MCH 30.0 MCHC 35.6 RDW 16.2 H Plt Count 75 L MPV 10.2 Gran % 79.4 H Lymph % (Auto) 13.3 L Ross % (Auto) 5.9 Eos % (Auto) 1.1 L Baso % (Auto) 0.3 Gran # 2.80 Lymph # (Auto) 0.5 L Ross # (Auto) 0.2 Eos # (Auto) 0.0 Baso # (Auto) 0.01 Neutrophils % (Manual) Band Neutrophils % Lymphocytes % (Manual) Monocytes % (Manual) Eosinophils % (Manual) Metamyelocytes % Platelet Evaluation Poikilocytosis (manual Anisocytosis (manual) PT INR pCO2 27 L pO2 173.0 H HCO3 16.7 L ABG pH 7.40 ABG Total CO2 17.5 L ABG O2 Saturation 100.7 H ABG O2 Content 11.9 L ABG Base Excess -7.2 L ABG Hemoglobin 8.3 L ABG Carboxyhemoglobin 1.8 H POC ABG HHb (Measured) -0.7 L ABG Methemoglobin 0.6 ABG O2 Capacity 11.8 L VBG pH VBG pCO2 VBG HCO3 VBG Total CO2 VBG O2 Sat (Calc) VBG Base Excess VBG Potassium Hgb O2 Saturation 98.3 H Glucose Lactate FiO2 50.0 Sodium 148 Potassium 2.9 L* Chloride 121 H Carbon Dioxide 18 L Anion Gap 11 BUN 25 H Creatinine 0.9 Est GFR ( Amer) > 60 Est GFR (Non-Af Amer) > 60 POC Glucose (mg/dL) Random Glucose 87 Calcium 9.3 Phosphorus 2.9 Magnesium 1.8 Total Bilirubin 6.1 H AST 73 H D ALT 31 Alkaline Phosphatase 136 H Total Protein 4.9 L Albumin 1.7 L Globulin 3.1 Albumin/Globulin Ratio 0.6 L Venous Blood Potassium Urine Color Urine Appearance Urine pH Ur Specific [place] Urine Protein Urine Glucose (UA) Urine Ketones Urine Blood Urine Nitrate Urine Bilirubin Urine Urobilinogen Ur Leukocyte Esterase Urine RBC Urine WBC Urine Bacteria Fine Granular Casts Coarse Granular Casts Blood Type Antibody Screen Crossmatch BBK History Checked 04/29/18 04/29/18 04/29/18 05:50 10:40 10:40 WBC 3.7 L RBC 3.08 L Hgb 9.3 L Hct 25.9 L MCV 84.1 MCH 30.2 MCHC 35.9 RDW 16.5 H Plt Count 67 L MPV 10.1 Gran % 81.2 H Lymph % (Auto) 11.6 L Ross % (Auto) 6.2 H Eos % (Auto) 0.5 L Baso % (Auto) 0.5 Gran # 3.02 Lymph # (Auto) 0.4 L Ross # (Auto) 0.2 Eos # (Auto) 0.0 Baso # (Auto) 0.02 Neutrophils % (Manual) Band Neutrophils % Lymphocytes % (Manual) Monocytes % (Manual) Eosinophils % (Manual) Metamyelocytes % Platelet Evaluation Poikilocytosis (manual Anisocytosis (manual) PT 13.5 H INR 1.17 H pCO2 pO2 122 H HCO3 ABG pH ABG Total CO2 ABG O2 Saturation ABG O2 Content ABG Base Excess ABG Hemoglobin ABG Carboxyhemoglobin POC ABG HHb (Measured) ABG Methemoglobin ABG O2 Capacity VBG pH 7.38 VBG pCO2 29.0 L VBG HCO3 17.2 L VBG Total CO2 18.1 L VBG O2 Sat (Calc) 99.7 H VBG Base Excess -6.6 L VBG Potassium 3.0 L Hgb O2 Saturation Glucose 76 Lactate 1.5 FiO2 21.0 Sodium 148.0 Potassium Chloride 124.0 H Carbon Dioxide Anion Gap BUN Creatinine Est GFR ( Amer) Est GFR (Non-Af Amer) POC Glucose (mg/dL) Random Glucose Calcium Phosphorus Magnesium Total Bilirubin AST ALT Alkaline Phosphatase Total Protein Albumin Globulin Albumin/Globulin Ratio Venous Blood Potassium 3.0 L Urine Color Urine Appearance Urine pH Ur Specific [place] Urine Protein Urine Glucose (UA) Urine Ketones Urine Blood Urine Nitrate Urine Bilirubin Urine Urobilinogen Ur Leukocyte Esterase Urine RBC Urine WBC Urine Bacteria Fine Granular Casts Coarse Granular Casts Blood Type Antibody Screen Crossmatch BBK History Checked 04/29/18 11:46 WBC RBC Hgb Hct MCV MCH MCHC RDW Plt Count MPV Gran % Lymph % (Auto) Ross % (Auto) Eos % (Auto) Baso % (Auto) Gran # Lymph # (Auto) Ross # (Auto) Eos # (Auto) Baso # (Auto) Neutrophils % (Manual) Band Neutrophils % Lymphocytes % (Manual) Monocytes % (Manual) Eosinophils % (Manual) Metamyelocytes % Platelet Evaluation Poikilocytosis (manual Anisocytosis (manual) PT INR pCO2 pO2 HCO3 ABG pH ABG Total CO2 ABG O2 Saturation ABG O2 Content ABG Base Excess ABG Hemoglobin ABG Carboxyhemoglobin POC ABG HHb (Measured) ABG Methemoglobin ABG O2 Capacity VBG pH VBG pCO2 VBG HCO3 VBG Total CO2 VBG O2 Sat (Calc) VBG Base Excess VBG Potassium Hgb O2 Saturation Glucose Lactate FiO2 Sodium Potassium Chloride Carbon Dioxide Anion Gap BUN Creatinine Est GFR ( Amer) Est GFR (Non-Af Amer) POC Glucose (mg/dL) Random Glucose Calcium Phosphorus Magnesium Total Bilirubin AST ALT Alkaline Phosphatase Total Protein Albumin Globulin Albumin/Globulin Ratio Venous Blood Potassium Urine Color Yellow Urine Appearance Sl cloudy Urine pH 6.0 Ur Specific [place] 1.020 Urine Protein Trace H Urine Glucose (UA) Negative Urine Ketones Negative Urine Blood Negative Urine Nitrate Negative Urine Bilirubin Moderate H Urine Urobilinogen 0.2 Ur Leukocyte Esterase Negative Urine RBC Negative Urine WBC Negative Urine Bacteria Few Fine Granular Casts 0 - 2 Coarse Granular Casts Mod H Blood Type Antibody Screen Crossmatch BBK History Checked Review of Systems - Review of Systems Systems not reviewed;Unavailable: Intubated Critical Care Progress Note - Ventilator Checklist Head of Bed 30 Degrees: Yes Daily Sedation Vacation: Yes Daily Assessment of Readiness to Wean: Yes Daily Spontaneous Breathing Trial: Yes PUD Prophalyxis: Yes DVT Prophylaxis: Yes Oral Care with Chlorhexidine Gluconate {CHG}: Yes - Vent Settings MODE:: PRVC TIDAL VOLUME:: 400 RESP RATE:: 12 FIO2:: 50 PEEP:: 5 - Extremities/Vascular Does the Patient have a Central Venous Catheter?: Yes (TLC) Insertion Site: Femoral Vein Does the Patient need a Central Venous Catheter?: Yes (TLC requiring presors) Does the Patient have a Hubbard Catheter?: Yes Does the Patient need a Hubbard Catheter?: Yes Catheter Insertion Criteria: Need for accurate measurement of output in critically ill patient - Restraints Justification for Restraints: High risk for self extubation - Prophylaxis GI Prophylaxis GI: PPI - Prophylaxis DVT Prophylaxis DVT: SCDs Assessment/Plan - Assessment and Plan (Free Text) Assessment: This is a 52 year old male who presented with 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 As per Dr. Arvizu, that fistula was embolized. Serial CBCs were continued, with goal Hgb to be more than 8. Due to hypovolemic shock ( hemorrhagic) pt received a total of 2 units of pRBCs, and 2 units of PLts, with stabilization of Hgb greater than 8.0. IV fluids were continued, and levophed was started for maintaining MAP>65 mmHg. Currently, pt's Hgb remains stable (8.8 ) and platelets are greater than 50 (75). Pt's BP is stable but he remains tachycardic. A pressure support trial failed. Plan: Neuro: - propofol is discontinued - weaning trial failed, precedex trial is ongoing Pulm: - pt is tachypneic on weaning trial, and was placed back on PRVC with protective lung ventilation strategy - PRVC (400, 12, 5, 50%) - keep HoB elevated >35 degrees - continue oral hygiene - pulmonary embolism treatment with anticoagulation is contraindicated as per GI due to recent bleeding - infrarenal IVC filter was placed by Dr. 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 - continue serial CBC - continue PTX gtt - t bili is uptrending - GI recommends that anticoagulation be given for PE, as long as H/h is stable without bleeding for 72 hours - GI recs appreciated - General surgery consulted, recs appreciated Renal: - maintain euvolemia - Continue LR IVF - replete electrolytes as needed - we will try to avoid hyperkalemia and nephrotoxic medications ID: - Blood culture prelim shows gram negative rods - Penicillin G for syphilis as per ID - f/u with ID recs, as pt cannot be given oral TB, HIV medications due to OGT actively suctioning - recs appreciated Endo: - maintain blood glucose between 140-180 according to NICE-SUGAR trial Heme: - f/u CBCs - Hgb goal > 8.0 - PLT goal >100 - H/H is stable at 8.8 - continue to closely monitor pt's pancytopenic and leukopenic status; likely due to HIV Dispo: Prognosis is guarded Case reviewed and discussed with attending physician, Dr. Parrish <Jose M Parrish - Last Filed: 04/29/18 18:46> CCU Objective - Vital Signs / Intake & Output Vital Signs (Last 4 hours): Vital Signs Temp Pulse Resp BP Pulse Ox 04/29/18 17:00 98 H 24 127/84 100 04/29/18 16:40 100.0 F H 114 H 100 04/29/18 16:30 99.9 F H 111 H 129/81 100 04/29/18 16:26 99.7 F H 104 H 120/87 100 04/29/18 16:21 99.7 F H 95 H 120/77 100 04/29/18 16:20 99.7 F H 92 H 100 04/29/18 16:15 99.5 F 92 H 109/67 100 04/29/18 16:10 99.5 F 90 100 04/29/18 16:00 99.5 F 80 22 104/64 99 04/29/18 15:50 99.5 F 79 99 04/29/18 15:45 99.5 F 87 104/61 99 04/29/18 15:40 99.5 F 88 99 04/29/18 15:32 99.5 F 86 25 H 106/64 04/29/18 15:30 99.5 F 88 106/64 99 07/16/18 15:20 99.5 F 86 99 04/29/18 15:15 99.5 F 91 H 111/67 99 04/29/18 15:14 99.5 F 87 27 H 93/54 L 04/29/18 15:10 99.5 F 87 99 04/29/18 15:00 99.5 F 77 93/54 L 99 04/29/18 14:50 99.5 F 77 98 04/29/18 14:45 99.5 F 77 92/57 L 99 04/29/18 14:40 99.5 F 77 98 04/29/18 14:30 99.7 F H 77 93/58 L 99 04/29/18 14:20 99.7 F H 77 98 Intake and Output (Last 8hrs): Intake & Output 04/29/18 04/29/18 04/29/18 06:59 14:59 22:59 Intake Total 100 2501 339 Output Total 2225 Balance 100 276 339 Weight 130 lb Intake: IV 100 2501 4 Left Forearm 140 Right Femoral 1890 Right Forearm 240 Blood Product 325 Red Blood Cells Cpd As1 325 Lr Unit [id number] Other 10 Red Blood Cells Cpd As1 10 Lr Unit [id number] Output: Gastric Amount 125 Stomach 125 Urine 2100 Urethral (Hubbard) 2100 Other: # Bowel Movements 0 - Patient Studies Lab Studies: Microbiology Studies 04/28/18 15:15 Blood Culture - Preliminary Blood NO GROWTH AFTER 24 HOURS 04/28/18 15:40 Blood Culture - Preliminary Blood Gram Negative Sukhjinder Gram Stain - Final Lab Studies 04/29/18 04/29/18 04/29/18 Range/Units 13:35 13:35 11:46 WBC 4.1 L (4.5-11.0) 10^3/ul RBC 2.74 L (3.5-6.1) 10^6/uL Hgb 8.3 L (14.0-18.0) g/dL Hct 23.0 L (42.0-52.0) % MCV 83.9 (80.0-105.0) fl MCH 30.3 (25.0-35.0) pg MCHC 36.1 (31.0-37.0) g/dl RDW 16.6 H (11.5-14.5) % Plt Count 57 L (120.0-450.0) 10^3/uL MPV 10.0 (7.0-11.0) fl Gran % (50.0-68.0) % Lymph % (Auto) (22.0-35.0) % Ross % (Auto) (1.0-6.0) % Eos % (Auto) (1.5-5.0) % Baso % (Auto) (0.0-3.0) % Gran # (1.4-6.5) Lymph # (Auto) (1.2-3.4) Ross # (Auto) (0.1-0.6) Eos # (Auto) (0.0-0.7) Baso # (Auto) (0.0-2.0) K/mm3 Neutrophils % (Manual) (50.0-70.0) % Band Neutrophils % (0-2) % Lymphocytes % (Manual) (22.0-35.0) % Monocytes % (Manual) (1.0-6.0) % Eosinophils % (Manual) (0.0-3.0) % Metamyelocytes % % Platelet Evaluation (NORMAL) Poikilocytosis (manual Anisocytosis (manual) PT (9.4-12.5) SECONDS INR (0.93-1.08) pCO2 (35-45) mm/Hg pO2 (80-100) mm/Hg HCO3 (21-28) mmol/L ABG pH (7.35-7.45) ABG Total CO2 (22-28) mmol.L ABG O2 Saturation (95-98) % ABG O2 Content (15-23) ML/dl ABG Base Excess (-2.0-3.0) mmol/L ABG Hemoglobin (11.7-17.4) g/dL ABG Carboxyhemoglobin (0.5-1.5) % POC ABG HHb (Measured) (0-5) % ABG Methemoglobin (0.0-3.0) % ABG O2 Capacity (16-24) mL/dl VBG pH (7.32-7.43) VBG pCO2 (40-60) VBG HCO3 (21-28) mmol/l VBG Total CO2 (22-28) mmol.L VBG O2 Sat (Calc) (40-65) % VBG Base Excess (0.0-2.0) mmol/L VBG Potassium (3.6-5.2) mmol/L Hgb O2 Saturation (95.0-98.0) % Glucose (75-110) mg/dl Lactate (0.7-2.1) mmol/L FiO2 % Sodium 147 (132-148) mmol/L Potassium 3.3 L (3.6-5.0) mmol/L Chloride 123 H (98-107) mmol/L Carbon Dioxide 18 L (21-33) mmol/L Anion Gap 10 (10-20) BUN 22 H (7-21) mg/dL Creatinine 0.8 (0.8-1.5) mg/dl Est GFR ( Amer) > 60 Est GFR (Non-Af Amer) > 60 POC Glucose (mg/dL) (65-110) mg/dL Random Glucose 63 L (70-110) mg/dL Calcium 9.1 (8.4-10.5) mg/dL Phosphorus (2.5-4.5) mg/dL Magnesium (1.7-2.2) mg/dL Total Bilirubin (0.2-1.3) mg/dL AST (17-59) U/L ALT (7-56) U/L Alkaline Phosphatase (38-126) U/L Total Protein (5.8-8.3) g/dL Albumin (3.0-4.8) g/dL Globulin gm/dL Albumin/Globulin Ratio (1.1-1.8) Procalcitonin (0.19-0.49) NG/ML Venous Blood Potassium (3.6-5.2) mmol/L Urine Color Yellow (YELLOW) Urine Appearance Sl cloudy (CLEAR) Urine pH 6.0 (4.7-8.0) Ur Specific [place] 1.020 (1.005-1.035) Urine Protein Trace H (<30 mg/dL) mg/dL Urine Glucose (UA) Negative (NEGATIVE) mg/dL Urine Ketones Negative (NEGATIVE) mg/dL Urine Blood Negative (NEGATIVE) Urine Nitrate Negative (NEGATIVE) Urine Bilirubin Moderate H (NEGATIVE) Urine Urobilinogen 0.2 (<1 E.U./dL) E.U./dL Ur Leukocyte Esterase Negative (NEGATIVE) [place]/uL Urine RBC Negative (0-2) /hpf Urine WBC Negative (0-6) /hpf Urine Bacteria Few (NEG) Fine Granular Casts 0 - 2 (0-2) /hpf Coarse Granular Casts Mod H (0-2) /hpf Blood Type Antibody Screen Crossmatch BBK History Checked 04/29/18 04/29/18 04/29/18 Range/Units 10:40 10:40 10:40 WBC 3.7 L (4.5-11.0) 10^3/ul RBC 3.08 L (3.5-6.1) 10^6/uL Hgb 9.3 L (14.0-18.0) g/dL Hct 25.9 L (42.0-52.0) % MCV 84.1 (80.0-105.0) fl MCH 30.2 (25.0-35.0) pg MCHC 35.9 (31.0-37.0) g/dl RDW 16.5 H (11.5-14.5) % Plt Count 67 L (120.0-450.0) 10^3/uL MPV 10.1 (7.0-11.0) fl Gran % 81.2 H (50.0-68.0) % Lymph % (Auto) 11.6 L (22.0-35.0) % Ross % (Auto) 6.2 H (1.0-6.0) % Eos % (Auto) 0.5 L (1.5-5.0) % Baso % (Auto) 0.5 (0.0-3.0) % Gran # 3.02 (1.4-6.5) Lymph # (Auto) 0.4 L (1.2-3.4) Ross # (Auto) 0.2 (0.1-0.6) Eos # (Auto) 0.0 (0.0-0.7) Baso # (Auto) 0.02 (0.0-2.0) K/mm3 Neutrophils % (Manual) (50.0-70.0) % Band Neutrophils % (0-2) % Lymphocytes % (Manual) (22.0-35.0) % Monocytes % (Manual) (1.0-6.0) % Eosinophils % (Manual) (0.0-3.0) % Metamyelocytes % % Platelet Evaluation (NORMAL) Poikilocytosis (manual Anisocytosis (manual) PT (9.4-12.5) SECONDS INR (0.93-1.08) pCO2 (35-45) mm/Hg pO2 122 H (80-100) mm/Hg HCO3 (21-28) mmol/L ABG pH (7.35-7.45) ABG Total CO2 (22-28) mmol.L ABG O2 Saturation (95-98) % ABG O2 Content (15-23) ML/dl ABG Base Excess (-2.0-3.0) mmol/L ABG Hemoglobin (11.7-17.4) g/dL ABG Carboxyhemoglobin (0.5-1.5) % POC ABG HHb (Measured) (0-5) % ABG Methemoglobin (0.0-3.0) % ABG O2 Capacity (16-24) mL/dl VBG pH 7.38 (7.32-7.43) VBG pCO2 29.0 L (40-60) VBG HCO3 17.2 L (21-28) mmol/l VBG Total CO2 18.1 L (22-28) mmol.L VBG O2 Sat (Calc) 99.7 H (40-65) % VBG Base Excess -6.6 L (0.0-2.0) mmol/L VBG Potassium 3.0 L (3.6-5.2) mmol/L Hgb O2 Saturation (95.0-98.0) % Glucose 76 (75-110) mg/dl Lactate 1.5 (0.7-2.1) mmol/L FiO2 21.0 % Sodium 148.0 (132-148) mmol/L Potassium (3.6-5.0) mmol/L Chloride 124.0 H (98-107) mmol/L Carbon Dioxide (21-33) mmol/L Anion Gap (10-20) BUN (7-21) mg/dL Creatinine (0.8-1.5) mg/dl Est GFR ( Amer) Est GFR (Non-Af Amer) POC Glucose (mg/dL) (65-110) mg/dL Random Glucose (70-110) mg/dL Calcium (8.4-10.5) mg/dL Phosphorus (2.5-4.5) mg/dL Magnesium (1.7-2.2) mg/dL Total Bilirubin (0.2-1.3) mg/dL AST (17-59) U/L ALT (7-56) U/L Alkaline Phosphatase (38-126) U/L Total Protein (5.8-8.3) g/dL Albumin (3.0-4.8) g/dL Globulin gm/dL Albumin/Globulin Ratio (1.1-1.8) Procalcitonin 27.10 H (0.19-0.49) NG/ML Venous Blood Potassium 3.0 L (3.6-5.2) mmol/L Urine Color (YELLOW) Urine Appearance (CLEAR) Urine pH (4.7-8.0) Ur Specific [place] (1.005-1.035) Urine Protein (<30 mg/dL) mg/dL Urine Glucose (UA) (NEGATIVE) mg/dL Urine Ketones (NEGATIVE) mg/dL Urine Blood (NEGATIVE) Urine Nitrate (NEGATIVE) Urine Bilirubin (NEGATIVE) Urine Urobilinogen (<1 E.U./dL) E.U./dL Ur Leukocyte Esterase (NEGATIVE) [place]/uL Urine RBC (0-2) /hpf Urine WBC (0-6) /hpf Urine Bacteria (NEG) Fine Granular Casts (0-2) /hpf Coarse Granular Casts (0-2) /hpf Blood Type Antibody Screen Crossmatch BBK History Checked 04/29/18 04/29/18 04/29/18 Range/Units 05:50 05:50 05:50 WBC 3.5 L (4.5-11.0) 10^3/ul RBC 2.93 L (3.5-6.1) 10^6/uL Hgb 8.8 L (14.0-18.0) g/dL Hct 24.7 L (42.0-52.0) % MCV 84.3 (80.0-105.0) fl MCH 30.0 (25.0-35.0) pg MCHC 35.6 (31.0-37.0) g/dl RDW 16.2 H (11.5-14.5) % Plt Count 75 L (120.0-450.0) 10^3/uL MPV 10.2 (7.0-11.0) fl Gran % 79.4 H (50.0-68.0) % Lymph % (Auto) 13.3 L (22.0-35.0) % Ross % (Auto) 5.9 (1.0-6.0) % Eos % (Auto) 1.1 L (1.5-5.0) % Baso % (Auto) 0.3 (0.0-3.0) % Gran # 2.80 (1.4-6.5) Lymph # (Auto) 0.5 L (1.2-3.4) Ross # (Auto) 0.2 (0.1-0.6) Eos # (Auto) 0.0 (0.0-0.7) Baso # (Auto) 0.01 (0.0-2.0) K/mm3 Neutrophils % (Manual) (50.0-70.0) % Band Neutrophils % (0-2) % Lymphocytes % (Manual) (22.0-35.0) % Monocytes % (Manual) (1.0-6.0) % Eosinophils % (Manual) (0.0-3.0) % Metamyelocytes % % Platelet Evaluation (NORMAL) Poikilocytosis (manual Anisocytosis (manual) PT 13.5 H (9.4-12.5) SECONDS INR 1.17 H (0.93-1.08) pCO2 (35-45) mm/Hg pO2 (80-100) mm/Hg HCO3 (21-28) mmol/L ABG pH (7.35-7.45) ABG Total CO2 (22-28) mmol.L ABG O2 Saturation (95-98) % ABG O2 Content (15-23) ML/dl ABG Base Excess (-2.0-3.0) mmol/L ABG Hemoglobin (11.7-17.4) g/dL ABG Carboxyhemoglobin (0.5-1.5) % POC ABG HHb (Measured) (0-5) % ABG Methemoglobin (0.0-3.0) % ABG O2 Capacity (16-24) mL/dl VBG pH (7.32-7.43) VBG pCO2 (40-60) VBG HCO3 (21-28) mmol/l VBG Total CO2 (22-28) mmol.L VBG O2 Sat (Calc) (40-65) % VBG Base Excess (0.0-2.0) mmol/L VBG Potassium (3.6-5.2) mmol/L Hgb O2 Saturation (95.0-98.0) % Glucose (75-110) mg/dl Lactate (0.7-2.1) mmol/L FiO2 % Sodium 148 (132-148) mmol/L Potassium 2.9 L* (3.6-5.0) mmol/L Chloride 121 H (98-107) mmol/L Carbon Dioxide 18 L (21-33) mmol/L Anion Gap 11 (10-20) BUN 25 H (7-21) mg/dL Creatinine 0.9 (0.8-1.5) mg/dl Est GFR ( Amer) > 60 Est GFR (Non-Af Amer) > 60 POC Glucose (mg/dL) (65-110) mg/dL Random Glucose 87 (70-110) mg/dL Calcium 9.3 (8.4-10.5) mg/dL Phosphorus 2.9 (2.5-4.5) mg/dL Magnesium 1.8 (1.7-2.2) mg/dL Total Bilirubin 6.1 H (0.2-1.3) mg/dL AST 73 H D (17-59) U/L ALT 31 (7-56) U/L Alkaline Phosphatase 136 H (38-126) U/L Total Protein 4.9 L (5.8-8.3) g/dL Albumin 1.7 L (3.0-4.8) g/dL Globulin 3.1 gm/dL Albumin/Globulin Ratio 0.6 L (1.1-1.8) Procalcitonin (0.19-0.49) NG/ML Venous Blood Potassium (3.6-5.2) mmol/L Urine Color (YELLOW) Urine Appearance (CLEAR) Urine pH (4.7-8.0) Ur Specific [place] (1.005-1.035) Urine Protein (<30 mg/dL) mg/dL Urine Glucose (UA) (NEGATIVE) mg/dL Urine Ketones (NEGATIVE) mg/dL Urine Blood (NEGATIVE) Urine Nitrate (NEGATIVE) Urine Bilirubin (NEGATIVE) Urine Urobilinogen (<1 E.U./dL) E.U./dL Ur Leukocyte Esterase (NEGATIVE) [place]/uL Urine RBC (0-2) /hpf Urine WBC (0-6) /hpf Urine Bacteria (NEG) Fine Granular Casts (0-2) /hpf Coarse Granular Casts (0-2) /hpf Blood Type Antibody Screen Crossmatch BBK History Checked 04/29/18 04/29/18 04/29/18 Range/Units 05:10 02:11 02:05 WBC 3.5 L (4.5-11.0) 10^3/ul RBC 2.87 L (3.5-6.1) 10^6/uL Hgb 8.7 L (14.0-18.0) g/dL Hct 24.2 L (42.0-52.0) % MCV 84.3 (80.0-105.0) fl MCH 30.3 (25.0-35.0) pg MCHC 36.0 (31.0-37.0) g/dl RDW 16.1 H (11.5-14.5) % Plt Count 82 L (120.0-450.0) 10^3/uL MPV 10.2 (7.0-11.0) fl Gran % 77.0 H (50.0-68.0) % Lymph % (Auto) 15.1 L (22.0-35.0) % Ross % (Auto) 6.7 H (1.0-6.0) % Eos % (Auto) 0.9 L (1.5-5.0) % Baso % (Auto) 0.3 (0.0-3.0) % Gran # 2.66 (1.4-6.5) Lymph # (Auto) 0.5 L (1.2-3.4) Ross # (Auto) 0.2 (0.1-0.6) Eos # (Auto) 0.0 (0.0-0.7) Baso # (Auto) 0.01 (0.0-2.0) K/mm3 Neutrophils % (Manual) 58 (50.0-70.0) % Band Neutrophils % 16 H* (0-2) % Lymphocytes % (Manual) 19 L (22.0-35.0) % Monocytes % (Manual) 5 (1.0-6.0) % Eosinophils % (Manual) 1 (0.0-3.0) % Metamyelocytes % 1 % Platelet Evaluation Low (NORMAL) Poikilocytosis (manual Slight Anisocytosis (manual) Slight PT (9.4-12.5) SECONDS INR (0.93-1.08) pCO2 27 L (35-45) mm/Hg pO2 173.0 H (80-100) mm/Hg HCO3 16.7 L (21-28) mmol/L ABG pH 7.40 (7.35-7.45) ABG Total CO2 17.5 L (22-28) mmol.L ABG O2 Saturation 100.7 H (95-98) % ABG O2 Content 11.9 L (15-23) ML/dl ABG Base Excess -7.2 L (-2.0-3.0) mmol/L ABG Hemoglobin 8.3 L (11.7-17.4) g/dL ABG Carboxyhemoglobin 1.8 H (0.5-1.5) % POC ABG HHb (Measured) -0.7 L (0-5) % ABG Methemoglobin 0.6 (0.0-3.0) % ABG O2 Capacity 11.8 L (16-24) mL/dl VBG pH (7.32-7.43) VBG pCO2 (40-60) VBG HCO3 (21-28) mmol/l VBG Total CO2 (22-28) mmol.L VBG O2 Sat (Calc) (40-65) % VBG Base Excess (0.0-2.0) mmol/L VBG Potassium (3.6-5.2) mmol/L Hgb O2 Saturation 98.3 H (95.0-98.0) % Glucose (75-110) mg/dl Lactate (0.7-2.1) mmol/L FiO2 50.0 % Sodium (132-148) mmol/L Potassium (3.6-5.0) mmol/L Chloride (98-107) mmol/L Carbon Dioxide (21-33) mmol/L Anion Gap (10-20) BUN (7-21) mg/dL Creatinine (0.8-1.5) mg/dl Est GFR ( Amer) Est GFR (Non-Af Amer) POC Glucose (mg/dL) 83 (65-110) mg/dL Random Glucose (70-110) mg/dL Calcium (8.4-10.5) mg/dL Phosphorus (2.5-4.5) mg/dL Magnesium (1.7-2.2) mg/dL Total Bilirubin (0.2-1.3) mg/dL AST (17-59) U/L ALT (7-56) U/L Alkaline Phosphatase (38-126) U/L Total Protein (5.8-8.3) g/dL Albumin (3.0-4.8) g/dL Globulin gm/dL Albumin/Globulin Ratio (1.1-1.8) Procalcitonin (0.19-0.49) NG/ML Venous Blood Potassium (3.6-5.2) mmol/L Urine Color (YELLOW) Urine Appearance (CLEAR) Urine pH (4.7-8.0) Ur Specific [place] (1.005-1.035) Urine Protein (<30 mg/dL) mg/dL Urine Glucose (UA) (NEGATIVE) mg/dL Urine Ketones (NEGATIVE) mg/dL Urine Blood (NEGATIVE) Urine Nitrate (NEGATIVE) Urine Bilirubin (NEGATIVE) Urine Urobilinogen (<1 E.U./dL) E.U./dL Ur Leukocyte Esterase (NEGATIVE) [place]/uL Urine RBC (0-2) /hpf Urine WBC (0-6) /hpf Urine Bacteria (NEG) Fine Granular Casts (0-2) /hpf Coarse Granular Casts (0-2) /hpf Blood Type Antibody Screen Crossmatch BBK History Checked 04/28/18 04/28/18 04/28/18 Range/Units 22:18 22:18 12:20 WBC 3.4 L D (4.5-11.0) 10^3/ul RBC 2.86 L (3.5-6.1) 10^6/uL Hgb 8.7 L (14.0-18.0) g/dL Hct 24.3 L (42.0-52.0) % MCV 85.0 (80.0-105.0) fl MCH 30.4 (25.0-35.0) pg MCHC 35.8 (31.0-37.0) g/dl RDW 15.8 H (11.5-14.5) % Plt Count 89 L (120.0-450.0) 10^3/uL MPV 10.7 (7.0-11.0) fl Gran % 75.9 H (50.0-68.0) % Lymph % (Auto) 14.2 L (22.0-35.0) % Ross % (Auto) 8.4 H (1.0-6.0) % Eos % (Auto) 0.9 L (1.5-5.0) % Baso % (Auto) 0.6 (0.0-3.0) % Gran # 2.61 (1.4-6.5) Lymph # (Auto) 0.5 L (1.2-3.4) Ross # (Auto) 0.3 (0.1-0.6) Eos # (Auto) 0.0 (0.0-0.7) Baso # (Auto) 0.02 (0.0-2.0) K/mm3 Neutrophils % (Manual) (50.0-70.0) % Band Neutrophils % (0-2) % Lymphocytes % (Manual) (22.0-35.0) % Monocytes % (Manual) (1.0-6.0) % Eosinophils % (Manual) (0.0-3.0) % Metamyelocytes % % Platelet Evaluation (NORMAL) Poikilocytosis (manual Anisocytosis (manual) PT 13.6 H (9.4-12.5) SECONDS INR 1.19 H (0.93-1.08) pCO2 (35-45) mm/Hg pO2 (80-100) mm/Hg HCO3 (21-28) mmol/L ABG pH (7.35-7.45) ABG Total CO2 (22-28) mmol.L ABG O2 Saturation (95-98) % ABG O2 Content (15-23) ML/dl ABG Base Excess (-2.0-3.0) mmol/L ABG Hemoglobin (11.7-17.4) g/dL ABG Carboxyhemoglobin (0.5-1.5) % POC ABG HHb (Measured) (0-5) % ABG Methemoglobin (0.0-3.0) % ABG O2 Capacity (16-24) mL/dl VBG pH (7.32-7.43) VBG pCO2 (40-60) VBG HCO3 (21-28) mmol/l VBG Total CO2 (22-28) mmol.L VBG O2 Sat (Calc) (40-65) % VBG Base Excess (0.0-2.0) mmol/L VBG Potassium (3.6-5.2) mmol/L Hgb O2 Saturation (95.0-98.0) % Glucose (75-110) mg/dl Lactate (0.7-2.1) mmol/L FiO2 % Sodium (132-148) mmol/L Potassium (3.6-5.0) mmol/L Chloride (98-107) mmol/L Carbon Dioxide (21-33) mmol/L Anion Gap (10-20) BUN (7-21) mg/dL Creatinine (0.8-1.5) mg/dl Est GFR ( Amer) Est GFR (Non-Af Amer) POC Glucose (mg/dL) (65-110) mg/dL Random Glucose (70-110) mg/dL Calcium (8.4-10.5) mg/dL Phosphorus (2.5-4.5) mg/dL Magnesium (1.7-2.2) mg/dL Total Bilirubin (0.2-1.3) mg/dL AST (17-59) U/L ALT (7-56) U/L Alkaline Phosphatase (38-126) U/L Total Protein (5.8-8.3) g/dL Albumin (3.0-4.8) g/dL Globulin gm/dL Albumin/Globulin Ratio (1.1-1.8) Procalcitonin (0.19-0.49) NG/ML Venous Blood Potassium (3.6-5.2) mmol/L Urine Color (YELLOW) Urine Appearance (CLEAR) Urine pH (4.7-8.0) Ur Specific [place] (1.005-1.035) Urine Protein (<30 mg/dL) mg/dL Urine Glucose (UA) (NEGATIVE) mg/dL Urine Ketones (NEGATIVE) mg/dL Urine Blood (NEGATIVE) Urine Nitrate (NEGATIVE) Urine Bilirubin (NEGATIVE) Urine Urobilinogen (<1 E.U./dL) E.U./dL Ur Leukocyte Esterase (NEGATIVE) [place]/uL Urine RBC (0-2) /hpf Urine WBC (0-6) /hpf Urine Bacteria (NEG) Fine Granular Casts (0-2) /hpf Coarse Granular Casts (0-2) /hpf Blood Type A NEGATIVE Antibody Screen Negative Crossmatch See Detail BBK History Checked Patient has bt Laboratory Results - last 24 hr 04/28/18 04/28/18 04/28/18 12:20 22:18 22:18 WBC 3.4 L D RBC 2.86 L Hgb 8.7 L Hct 24.3 L MCV 85.0 MCH 30.4 MCHC 35.8 RDW 15.8 H Plt Count 89 L MPV 10.7 Gran % 75.9 H Lymph % (Auto) 14.2 L Ross % (Auto) 8.4 H Eos % (Auto) 0.9 L Baso % (Auto) 0.6 Gran # 2.61 Lymph # (Auto) 0.5 L Ross # (Auto) 0.3 Eos # (Auto) 0.0 Baso # (Auto) 0.02 Neutrophils % (Manual) Band Neutrophils % Lymphocytes % (Manual) Monocytes % (Manual) Eosinophils % (Manual) Metamyelocytes % Platelet Evaluation Poikilocytosis (manual Anisocytosis (manual) PT 13.6 H INR 1.19 H pCO2 pO2 HCO3 ABG pH ABG Total CO2 ABG O2 Saturation ABG O2 Content ABG Base Excess ABG Hemoglobin ABG Carboxyhemoglobin POC ABG HHb (Measured) ABG Methemoglobin ABG O2 Capacity VBG pH VBG pCO2 VBG HCO3 VBG Total CO2 VBG O2 Sat (Calc) VBG Base Excess VBG Potassium Hgb O2 Saturation Glucose Lactate FiO2 Sodium Potassium Chloride Carbon Dioxide Anion Gap BUN Creatinine Est GFR ( Amer) Est GFR (Non-Af Amer) POC Glucose (mg/dL) Random Glucose Calcium Phosphorus Magnesium Total Bilirubin AST ALT Alkaline Phosphatase Total Protein Albumin Globulin Albumin/Globulin Ratio Procalcitonin Venous Blood Potassium Urine Color Urine Appearance Urine pH Ur Specific [place] Urine Protein Urine Glucose (UA) Urine Ketones Urine Blood Urine Nitrate Urine Bilirubin Urine Urobilinogen Ur Leukocyte Esterase Urine RBC Urine WBC Urine Bacteria Fine Granular Casts Coarse Granular Casts Blood Type A NEGATIVE Antibody Screen Negative Crossmatch See Detail BBK History Checked Patient has bt 04/29/18 04/29/18 04/29/18 02:05 02:11 05:10 WBC 3.5 L RBC 2.87 L Hgb 8.7 L Hct 24.2 L MCV 84.3 MCH 30.3 MCHC 36.0 RDW 16.1 H Plt Count 82 L MPV 10.2 Gran % 77.0 H Lymph % (Auto) 15.1 L Ross % (Auto) 6.7 H Eos % (Auto) 0.9 L Baso % (Auto) 0.3 Gran # 2.66 Lymph # (Auto) 0.5 L Ross # (Auto) 0.2 Eos # (Auto) 0.0 Baso # (Auto) 0.01 Neutrophils % (Manual) 58 Band Neutrophils % 16 H* Lymphocytes % (Manual) 19 L Monocytes % (Manual) 5 Eosinophils % (Manual) 1 Metamyelocytes % 1 Platelet Evaluation Low Poikilocytosis (manual Slight Anisocytosis (manual) Slight PT INR pCO2 27 L pO2 173.0 H HCO3 16.7 L ABG pH 7.40 ABG Total CO2 17.5 L ABG O2 Saturation 100.7 H ABG O2 Content 11.9 L ABG Base Excess -7.2 L ABG Hemoglobin 8.3 L ABG Carboxyhemoglobin 1.8 H POC ABG HHb (Measured) -0.7 L ABG Methemoglobin 0.6 ABG O2 Capacity 11.8 L VBG pH VBG pCO2 VBG HCO3 VBG Total CO2 VBG O2 Sat (Calc) VBG Base Excess VBG Potassium Hgb O2 Saturation 98.3 H Glucose Lactate FiO2 50.0 Sodium Potassium Chloride Carbon Dioxide Anion Gap BUN Creatinine Est GFR ( Amer) Est GFR (Non-Af Amer) POC Glucose (mg/dL) 83 Random Glucose Calcium Phosphorus Magnesium Total Bilirubin AST ALT Alkaline Phosphatase Total Protein Albumin Globulin Albumin/Globulin Ratio Procalcitonin Venous Blood Potassium Urine Color Urine Appearance Urine pH Ur Specific [place] Urine Protein Urine Glucose (UA) Urine Ketones Urine Blood Urine Nitrate Urine Bilirubin Urine Urobilinogen Ur Leukocyte Esterase Urine RBC Urine WBC Urine Bacteria Fine Granular Casts Coarse Granular Casts Blood Type Antibody Screen Crossmatch BBK History Checked 04/29/18 04/29/18 04/29/18 05:50 05:50 05:50 WBC 3.5 L RBC 2.93 L Hgb 8.8 L Hct 24.7 L MCV 84.3 MCH 30.0 MCHC 35.6 RDW 16.2 H Plt Count 75 L MPV 10.2 Gran % 79.4 H Lymph % (Auto) 13.3 L Ross % (Auto) 5.9 Eos % (Auto) 1.1 L Baso % (Auto) 0.3 Gran # 2.80 Lymph # (Auto) 0.5 L Ross # (Auto) 0.2 Eos # (Auto) 0.0 Baso # (Auto) 0.01 Neutrophils % (Manual) Band Neutrophils % Lymphocytes % (Manual) Monocytes % (Manual) Eosinophils % (Manual) Metamyelocytes % Platelet Evaluation Poikilocytosis (manual Anisocytosis (manual) PT 13.5 H INR 1.17 H pCO2 pO2 HCO3 ABG pH ABG Total CO2 ABG O2 Saturation ABG O2 Content ABG Base Excess ABG Hemoglobin ABG Carboxyhemoglobin POC ABG HHb (Measured) ABG Methemoglobin ABG O2 Capacity VBG pH VBG pCO2 VBG HCO3 VBG Total CO2 VBG O2 Sat (Calc) VBG Base Excess VBG Potassium Hgb O2 Saturation Glucose Lactate FiO2 Sodium 148 Potassium 2.9 L* Chloride 121 H Carbon Dioxide 18 L Anion Gap 11 BUN 25 H Creatinine 0.9 Est GFR ( Amer) > 60 Est GFR (Non-Af Amer) > 60 POC Glucose (mg/dL) Random Glucose 87 Calcium 9.3 Phosphorus 2.9 Magnesium 1.8 Total Bilirubin 6.1 H AST 73 H D ALT 31 Alkaline Phosphatase 136 H Total Protein 4.9 L Albumin 1.7 L Globulin 3.1 Albumin/Globulin Ratio 0.6 L Procalcitonin Venous Blood Potassium Urine Color Urine Appearance Urine pH Ur Specific [place] Urine Protein Urine Glucose (UA) Urine Ketones Urine Blood Urine Nitrate Urine Bilirubin Urine Urobilinogen Ur Leukocyte Esterase Urine RBC Urine WBC Urine Bacteria Fine Granular Casts Coarse Granular Casts Blood Type Antibody Screen Crossmatch BBK History Checked 04/29/18 04/29/18 04/29/18 10:40 10:40 10:40 WBC 3.7 L RBC 3.08 L Hgb 9.3 L Hct 25.9 L MCV 84.1 MCH 30.2 MCHC 35.9 RDW 16.5 H Plt Count 67 L MPV 10.1 Gran % 81.2 H Lymph % (Auto) 11.6 L Ross % (Auto) 6.2 H Eos % (Auto) 0.5 L Baso % (Auto) 0.5 Gran # 3.02 Lymph # (Auto) 0.4 L Ross # (Auto) 0.2 Eos # (Auto) 0.0 Baso # (Auto) 0.02 Neutrophils % (Manual) Band Neutrophils % Lymphocytes % (Manual) Monocytes % (Manual) Eosinophils % (Manual) Metamyelocytes % Platelet Evaluation Poikilocytosis (manual Anisocytosis (manual) PT INR pCO2 pO2 122 H HCO3 ABG pH ABG Total CO2 ABG O2 Saturation ABG O2 Content ABG Base Excess ABG Hemoglobin ABG Carboxyhemoglobin POC ABG HHb (Measured) ABG Methemoglobin ABG O2 Capacity VBG pH 7.38 VBG pCO2 29.0 L VBG HCO3 17.2 L VBG Total CO2 18.1 L VBG O2 Sat (Calc) 99.7 H VBG Base Excess -6.6 L VBG Potassium 3.0 L Hgb O2 Saturation Glucose 76 Lactate 1.5 FiO2 21.0 Sodium 148.0 Potassium Chloride 124.0 H Carbon Dioxide Anion Gap BUN Creatinine Est GFR ( Amer) Est GFR (Non-Af Amer) POC Glucose (mg/dL) Random Glucose Calcium Phosphorus Magnesium Total Bilirubin AST ALT Alkaline Phosphatase Total Protein Albumin Globulin Albumin/Globulin Ratio Procalcitonin 27.10 H Venous Blood Potassium 3.0 L Urine Color Urine Appearance Urine pH Ur Specific [place] Urine Protein Urine Glucose (UA) Urine Ketones Urine Blood Urine Nitrate Urine Bilirubin Urine Urobilinogen Ur Leukocyte Esterase Urine RBC Urine WBC Urine Bacteria Fine Granular Casts Coarse Granular Casts Blood Type Antibody Screen Crossmatch BBK History Checked 04/29/18 04/29/18 04/29/18 11:46 13:35 13:35 WBC 4.1 L RBC 2.74 L Hgb 8.3 L Hct 23.0 L MCV 83.9 MCH 30.3 MCHC 36.1 RDW 16.6 H Plt Count 57 L MPV 10.0 Gran % Lymph % (Auto) Ross % (Auto) Eos % (Auto) Baso % (Auto) Gran # Lymph # (Auto) Ross # (Auto) Eos # (Auto) Baso # (Auto) Neutrophils % (Manual) Band Neutrophils % Lymphocytes % (Manual) Monocytes % (Manual) Eosinophils % (Manual) Metamyelocytes % Platelet Evaluation Poikilocytosis (manual Anisocytosis (manual) PT INR pCO2 pO2 HCO3 ABG pH ABG Total CO2 ABG O2 Saturation ABG O2 Content ABG Base Excess ABG Hemoglobin ABG Carboxyhemoglobin POC ABG HHb (Measured) ABG Methemoglobin ABG O2 Capacity VBG pH VBG pCO2 VBG HCO3 VBG Total CO2 VBG O2 Sat (Calc) VBG Base Excess VBG Potassium Hgb O2 Saturation Glucose Lactate FiO2 Sodium 147 Potassium 3.3 L Chloride 123 H Carbon Dioxide 18 L Anion Gap 10 BUN 22 H Creatinine 0.8 Est GFR ( Amer) > 60 Est GFR (Non-Af Amer) > 60 POC Glucose (mg/dL) Random Glucose 63 L Calcium 9.1 Phosphorus Magnesium Total Bilirubin AST ALT Alkaline Phosphatase Total Protein Albumin Globulin Albumin/Globulin Ratio Procalcitonin Venous Blood Potassium Urine Color Yellow Urine Appearance Sl cloudy Urine pH 6.0 Ur Specific [place] 1.020 Urine Protein Trace H Urine Glucose (UA) Negative Urine Ketones Negative Urine Blood Negative Urine Nitrate Negative Urine Bilirubin Moderate H Urine Urobilinogen 0.2 Ur Leukocyte Esterase Negative Urine RBC Negative Urine WBC Negative Urine Bacteria Few Fine Granular Casts 0 - 2 Coarse Granular Casts Mod H Blood Type Antibody Screen Crossmatch BBK History Checked Attending/Attestation - Attestation I have personally seen and examined this patient.: Yes I have fully participated in the care of the patient.: Yes I have reviewed all pertinent clinical information: Yes Notes (Text): 04/29/18 18:18 52 yo HIV, MTB, pts was temporarily transferred to [facility] for arteriography and potential embolization of of bleeding branch of GD or HB arterial bed in light of inability of upper endoscopy to control duodenal bleed. Apparently patient was deemd too sick to operate based on reports from [facility]. 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 BP improved. Patient was accepted back to [facility] by Dr. Gage. Report given to [facility] bessemer bottom maker. Later however, he had another bout of bloody bowel movement and Hb dropped a bit. 2 PRBC were transfused, 1L IVF bolus was given, NE started. Dr. Arvizu re- evaled patient at bedside-->no repeated intervention; Dr. Choudhury (vascular surgery ) was contacted-->pt wouldnt tolerate OR-->no surgery. BP stabilized with NE, IVF and blood products-->stable for transfer to [facility]. Meropenem started (BC positive for GNR). ccm time 40 min
[2018-04-29 14:33] LABS: HEMOGLOBIN 8.3 g/dL (14.0-18.0); MEAN CELL VOLUME 83.9 fl (80.0-105.0); MEAN CORPUSCULAR HEMOGLOBIN 30.3 pg (25.0-35.0); MEAN CORPUSCULAR HGB CONC 36.1 g/dl (31.0-37.0); RBC 2.74 10^6/uL (3.5-6.1); RED CELL DISTRIBUTION WIDTH 16.6 % (11.5-14.5); WHITE BLOOD COUNT 4.1 10^3/ul (4.5-11.0)
--- NOTE | 2018-04-29 14:56 | CP.PCM.PN ---
<Palmer Lopez - Last Filed: 04/29/18 14:38> Subjective - Date & Time of Evaluation Date of Evaluation: 04/29/18 Time of Evaluation: 09:35 - Subjective Subjective: Palmer Lopez- Internal Medicine Progress Note on Behalf of Hospitalist Team Subjective: Pt seen and examined at bedside. No further subjective data can be attained at this time due to patient receiving sedating medication. As per nursing there were no acute overnight events nor acute complications after completion of IR procedure yesterday evening. 12-point review of systems negative except as indicated in the HPI Physical Examination: - Constitutional Appears: No Acute Distress, Older Than Stated Age, Cachectic, Chronically Ill - Head Exam Head Exam: ATRAUMATIC, NORMAL INSPECTION - Eye Exam Eye Exam: Perrl - ENT Exam ENT Exam: Mucous Membranes Dry - Respiratory Exam Respiratory Exam: Clear to Auscultation Bilateral - Cardiovascular Exam Cardiovascular Exam: REGULAR RATE AND RHYTHM, no murmurs, no rubs, no gallops - GI/Abdominal Exam GI & Abdominal Exam: Distended, normal bowel sounds x 4, absent: Tenderness, guarding, rebound tendernes - Extremities Exam Extremities Exam: lower extremity edema, no cyanosis, no clubbing - Neurological Exam Neurological Exam: limited exam-sedated on ventilator - Skin Skin Exam: jaundice Assessment and Plan: Patient is a 52 year old male with a past medical history of AIDS, tuberculosis involving the bone marrow, cachexia/failure to thrive, parasthesias who was transferred to the [facility] for evaluation and treatment of a refractory upper GI Bleed. Patient is s/p IR embolization with coil of LHA mycotic aneurysm. Hemorrhagic Shock - continue levophed as per ICU team, goal monitor vitals, keep MAP > 65 - monitor h and h - transfuse pRBCs if hgb < 7 Respiratory Failure Secondary to Shock - intubated and sedated - vent settings as per ICU team - patient vented and sedated for airway protection GI Bleed - fernanda 2/2 to LHA mycotic aneurysm- embolized by IR - produced 125 mL of blood via OGT overnight - monitor H and H, patient received 2 units pRBCs overnight with appropriate Hgb response Hemorrhagic Anemia - s/p emergent EGD at [facility], likely cause Duodenal AVM - c/w protonix drip - transfuse to keep Hgb > 7 - general surgery consulted- appreciate recommendations Symptomatic AIDS, Syphilis - CD4: 86 as of 04/24 - ID consulted- appreciate recommendations - c/w MAHARAJ therapy - c/w pencillin G, merrem, and vancomycin, and bactrim Tuberculosis - c/w RIP therapy (ethambutol d/terence by [facility] as per [facility] records) Failure to thrive/Wasting Syndrome - hedyley secondary to AIDS, multiple comorbities - treat underlying condition Prophylaxis - DVT- no AC at this time due to hemorrhagic anemia - GI ppx- protonix Patient case discussed with and plan approved by attending physician, Dr. Lopez. Objective - Vital Signs/Intake and Output Vital Signs (last 24 hours): Temp Pulse Resp BP Pulse Ox 99.7 F H 77 26 H 99/59 L 98 04/29/18 14:20 04/29/18 14:20 04/29/18 08:00 04/29/18 14:15 04/29/18 14:20 Intake and Output: 04/29/18 04/29/18 06:59 18:59 Intake Total 845 2468 Output Total 2225 Balance 845 243 - Medications Medications: Current Medications Atovaquone (Mepron) 750 mg PO BID JEROME PRN Reason: Protocol Last Admin: 04/29/18 09:28 Dose: Not Given Emtricitabine/Tenofovir (Truvada 200 Mg-300 Mg) 1 tab PO DAILY JEROME PRN Reason: Protocol Propofol (Diprivan) 1,000 mg in 100 mls @ 1.793 mls/hr IV .Q24H PRN; Protocol; 5 MCG/KG/MIN PRN Reason: TITRATE PER MD ORDER Last Titration: 04/29/18 09:10 Dose: 0 mcg/kg/min, 0 mls/hr NOREPINEPHRINE BIT/0.9 % NACL (Levophed 4 Mg/ 250 Ml Ns Premixed) 4 mg in 250 mls @ 15 mls/hr IV .[id number] PRN; Protocol; 4 MCG/MIN PRN Reason: TITRATE PER MD ORDER Last Titration: 04/29/18 14:15 Dose: 10 mcg/min, 37.5 mls/hr Potassium Chloride (Potassium Chloride 20 Meq/100 Ml) 20 meq in 100 mls @ 50 mls/hr IVPB Q2H JEROME Stop: 04/29/18 19:29 Last Admin: 04/29/18 13:22 Dose: 50 mls/hr Dexmedetomidine HCl (Precedex 400mcg/100ml) 400 mcg in 100 mls @ 2.948 mls/hr IV .Q24H PRN; Protocol; 0.2 MCG/KG/HR PRN Reason: Agitation Last Titration: 04/29/18 11:11 Dose: 0.4 mcg/kg/hr, 5.897 mls/hr Lactated Ringer's (Lactated Ringer's) 1,000 mls @ 150 mls/hr IV .Q6H40M JEROME Last Admin: 04/29/18 10:42 Dose: 150 mls/hr Pantoprazole Sodium 40 mg/ (Dextrose) 100 mls @ 20 mls/hr IV .Q5H JEROME Last Admin: 04/29/18 12:39 Dose: 20 mls/hr Midazolam 100 mg/100ml in NS (Midazolam 100 Mg/100ml In Ns) 100 mg in 100 mls @ 1 mls/hr IV .Q24H PRN; Protocol; 1 MG/HR PRN Reason: Sedation Last Admin: 04/29/18 13:59 Dose: 1 mg/hr, 1 mls/hr Meropenem (Merrem Iv 1 Gm Premix) 50 mls @ 100 mls/hr IVPB Q8 JEROME PRN Reason: Protocol Last Admin: 04/29/18 14:20 Dose: 100 mls/hr Vancomycin HCl (Vancomycin 1gm) 1 gm in 250 mls @ 167 mls/hr IVPB Q12H JEROME PRN Reason: Protocol Last Admin: 04/29/18 14:22 Dose: 167 mls/hr Penicillin G Potassium 4 mu/ (Sodium Chloride) 50 mls @ 100 mls/hr IVPB Q4 JEROME PRN Reason: Protocol Isoniazid (Niazid) 300 mg PO DAILY JEROME PRN Reason: Protocol Last Admin: 04/29/18 09:28 Dose: Not Given Pyrazinamide (Pyrazinamide) 1,000 mg PO DAILY JEROME PRN Reason: Protocol Last Admin: 04/29/18 09:28 Dose: Not Given Pyridoxine HCl (Vitamin B6 50 Mg Tab) 100 mg PO DAILY JEROME Last Admin: 04/29/18 09:27 Dose: Not Given Raltegravir (Isentress) 800 mg PO BID JEROME PRN Reason: Protocol Rifampin (Rifampin Cap) 600 mg PO DAILY JEROME PRN Reason: Protocol Last Admin: 04/29/18 09:28 Dose: Not Given Trimethoprim/Sulfamethoxazole (Bactrim Ds Tab) 1 tab PO MWF JEROME PRN Reason: Protocol - Labs Labs: 04/29/18 13:35 04/29/18 13:35 PT 13.5 SECONDS (9.4-12.5) H 04/29/18 05:50 INR 1.17 (0.93-1.08) H 04/29/18 05:50 APTT 35.0 Seconds (25.1-36.5) 04/28/18 12:30 <Mary Lopez R - Last Filed: 04/29/18 17:28> Objective - Vital Signs/Intake and Output Vital Signs (last 24 hours): Temp Pulse Resp BP Pulse Ox 100.0 F H 114 H 22 129/81 100 04/29/18 16:40 04/29/18 16:40 04/29/18 16:00 04/29/18 16:30 04/29/18 16:40 Intake and Output: 04/29/18 04/29/18 06:59 18:59 Intake Total 845 2835 Output Total 2225 Balance 845 610 - Medications Medications: Current Medications Atovaquone (Mepron) 750 mg PO BID JEROME PRN Reason: Protocol Last Admin: 04/29/18 09:28 Dose: Not Given Emtricitabine/Tenofovir (Truvada 200 Mg-300 Mg) 1 tab PO DAILY JEROME PRN Reason: Protocol Last Admin: 04/29/18 13:50 Dose: Not Given Propofol (Diprivan) 1,000 mg in 100 mls @ 1.793 mls/hr IV .Q24H PRN; Protocol; 5 MCG/KG/MIN PRN Reason: TITRATE PER MD ORDER Last Titration: 04/29/18 09:10 Dose: 0 mcg/kg/min, 0 mls/hr NOREPINEPHRINE BIT/0.9 % NACL (Levophed 4 Mg/ 250 Ml Ns Premixed) 4 mg in 250 mls @ 15 mls/hr IV .[id number] PRN; Protocol; 4 MCG/MIN PRN Reason: TITRATE PER MD ORDER Last Titration: 04/29/18 14:30 Dose: 12 mcg/min, 45 mls/hr Potassium Chloride (Potassium Chloride 20 Meq/100 Ml) 20 meq in 100 mls @ 50 mls/hr IVPB Q2H JEROME Stop: 04/29/18 19:29 Last Admin: 04/29/18 13:22 Dose: 50 mls/hr Dexmedetomidine HCl (Precedex 400mcg/100ml) 400 mcg in 100 mls @ 2.948 mls/hr IV .Q24H PRN; Protocol; 0.2 MCG/KG/HR PRN Reason: Agitation Last Titration: 04/29/18 13:25 Dose: 0 mcg/kg/hr, 0 mls/hr Lactated Ringer's (Lactated Ringer's) 1,000 mls @ 150 mls/hr IV .Q6H40M [facility] Last Admin: 04/29/18 10:42 Dose: 150 mls/hr Pantoprazole Sodium 40 mg/ (Dextrose) 100 mls @ 20 mls/hr IV .Q5H JEROME Last Admin: 04/29/18 12:39 Dose: 20 mls/hr Midazolam 100 mg/100ml in NS (Midazolam 100 Mg/100ml In Ns) 100 mg in 100 mls @ 1 mls/hr IV .Q24H PRN; Protocol; 1 MG/HR PRN Reason: Sedation Last Admin: 04/29/18 13:59 Dose: 1 mg/hr, 1 mls/hr Meropenem (Merrem Iv 1 Gm Premix) 50 mls @ 100 mls/hr IVPB Q8 JEROME PRN Reason: Protocol Last Admin: 04/29/18 14:20 Dose: 100 mls/hr Vancomycin HCl (Vancomycin 1gm) 1 gm in 250 mls @ 167 mls/hr IVPB Q12H JEROME PRN Reason: Protocol Last Admin: 04/29/18 14:22 Dose: 167 mls/hr Penicillin G Potassium 4 mu/ (Sodium Chloride) 50 mls @ 100 mls/hr IVPB Q4 JEROME PRN Reason: Protocol Last Admin: 04/29/18 16:46 Dose: 100 mls/hr Isoniazid (Niazid) 300 mg PO DAILY JEROME PRN Reason: Protocol Last Admin: 04/29/18 09:28 Dose: Not Given Pyrazinamide (Pyrazinamide) 1,000 mg PO DAILY JEROME PRN Reason: Protocol Last Admin: 04/29/18 09:28 Dose: Not Given Pyridoxine HCl (Vitamin B6 50 Mg Tab) 100 mg PO DAILY [facility] Last Admin: 04/29/18 09:27 Dose: Not Given Raltegravir (Isentress) 800 mg PO BID JEROME PRN Reason: Protocol Rifampin (Rifampin Cap) 600 mg PO DAILY JEROME PRN Reason: Protocol Last Admin: 04/29/18 09:28 Dose: Not Given Trimethoprim/Sulfamethoxazole (Bactrim Ds Tab) 1 tab PO MWF JEROME PRN Reason: Protocol - Labs Labs: 04/29/18 13:35 04/29/18 13:35 PT 13.5 SECONDS (9.4-12.5) H 04/29/18 05:50 INR 1.17 (0.93-1.08) H 04/29/18 05:50 APTT 35.0 Seconds (25.1-36.5) 04/28/18 12:30 Attending/Attestation - Attestation I have personally seen and examined this patient.: Yes I have fully participated in the care of the patient.: Yes I have reviewed all pertinent clinical information, including history, physical exam and plan: Yes Notes (Text): Patient seen and examined by me at 09:40AM with resident. Patient is new to me. Case discussed with Dr. Guerra. Case including HPI, physical exam, and physical assessment and plan discussed with resident. Agree with above with following additions/corrections. Patient is a 52-year-old male with past medical history significant for AIDS, tuberculosis involving the bone marrow, failure to thrive, infectious diarrhea, and syphilis that presented from [facility] for duodenal bulb bleed unable to be treated with EGD. Patient is status post subselective coil embolization of the right hepatic and proper hepatic artery and IVC filter placement for pulmonary embolism. Patient intubated at my time of exam. Patient awake and off sedation and pressors at my time of exam. Unable to obtain review of systems from patient secondary to intubation. Patient with low grade fevers. Patient did receive packed red blood cells. H&H being monitored. Physical exam: Gen: Awake and intubated HEENT: Normocephalic atraumatic, extraocular muscles intact, pupils equal reactive, ET tube in place. OG tube in place with bloody output. Positive scleral icterus Cardiovascular: Normal rhythm, normal S1-S2. No murmurs, rubs, or gallops appreciated Pulmonary: Positive vent sounds. No rhonchi, rales or wheezing appreciated. Gastrointestinal: Soft, positive tenderness to mild palpation, positive distention, positive bowel sounds all 4 quadrants, no guarding Musculoskeletal: Appears to move all extremities. Positive edema upper and lower extremities. Central nervous system: Patient awake and intubated. Dermatologic: Skin warm and dry, jaundiced Assessment and plan: Patient is a 52-year-old male with past medical history significant for AIDS, tuberculosis involving the bone marrow, failure to thrive , infectious diarrhea, and syphilis that presented from [facility] for duodenal bulb bleed unable to be treated with EGD. Patient is status post subselective coil embolization of the right hepatic and proper hepatic artery and IVC filter placement for pulmonary embolism. 1. 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 Status post coil embolization with interventional radiology Dr. Arvizu. H&H had stabilized. However most recent hemoglobin downtrending. Positive bloody output from OG tube. IR following, recommendations appreciated. Surgery following, recommendations appreciated. Continue to monitor CBC. Transfuse as needed. Continue with pressors, keep map greater than 65. Continue protonic drip. 2. Acute blood loss anemia. Continue to monitor H&H. Transfuse as needed. 3. Pulmonary embolism. Status post IVC filter. Anticoagulation contraindicated for now secondary to bleed. Per GI, if patient remains stable for 72 hours, will likely require anticoagulation for PE. 4. Acute respiratory failure. Likely secondary to #1, 2, and 3. Patient is intubated. Patient failed weaning trial. Patient sedated. Vent settings as per ICU. 5. AIDS/syphilis/miliary TB. Low-grade fevers. ID following, recommendations appreciated. Continue with vancomycin, meropenem, and penicillin G. Blood cultures pending. Continue Mepron, Truvada, Niazid, Pyrazinamide, Isentress, Rifampin, Bactrim and Vitamin B6 when can take meds orally or via OGT. 6. Hypokalemia. Given replacement. Follow up repeat labs. 7. Failure to thrive. Likely secondary to multiple comorbidities including AIDS , syphilis, and miliary TB. Will need to be seen by dietitian once stable. 8. Patient critically ill. Poor prognosis. Case was discussed in detail with medical office professional instructor and ICU resident at bedside regarding current diagnosis and treatment plan
[2018-04-29] MEDS ORDERED: PENICILLIN POTASSIUM MU IVPB SCH (16:00)
[2018-04-29] MEDS ORDERED: SODIUM CHLORIDE IVPB SCH (16:00)
[2018-04-29 16:44] VITALS: TEMP 100; O2SAT 100
[2018-04-29 17:49] VITALS: BP 127/84; PULSE 98; RESP 24
--- NOTE | 2018-04-30 06:18 | CP.PCM.DIS ---
Provider - Provider Date of Admission: 04/28/18 11:07 Attending physician: Stephanie Carey MD Time Spent in preparation of Discharge (in minutes): 45 Hospital Course - Lab Results Lab Results: Micro Results 04/28/18 12:50 Naris MRSA Culture (Admit) - Final MRSA NOT DETECTED 04/28/18 15:15 Blood Blood Culture - Preliminary NO GROWTH AFTER 24 HOURS 04/28/18 15:40 Blood Blood Culture - Preliminary Gram Negative Sukhjinder 04/28/18 15:40 Blood Gram Stain - Final Most Recent Lab Values WBC 4.1 10^3/ul (4.5-11.0) L 04/29/18 13:35 RBC 2.74 10^6/uL (3.5-6.1) L 04/29/18 13:35 Hgb 8.3 g/dL (14.0-18.0) L 04/29/18 13:35 Hct 23.0 % (42.0-52.0) L 04/29/18 13:35 MCV 83.9 fl (80.0-105.0) 04/29/18 13:35 MCH 30.3 pg (25.0-35.0) 04/29/18 13:35 MCHC 36.1 g/dl (31.0-37.0) 04/29/18 13:35 RDW 16.6 % (11.5-14.5) H 04/29/18 13:35 Plt Count 57 10^3/uL (120.0-450.0) L 04/29/18 13:35 MPV 10.0 fl (7.0-11.0) 04/29/18 13:35 Gran % 81.2 % (50.0-68.0) H 04/29/18 10:40 Lymph % (Auto) 11.6 % (22.0-35.0) L 04/29/18 10:40 [place] % (Auto) 6.2 % (1.0-6.0) H 04/29/18 10:40 Eos % (Auto) 0.5 % (1.5-5.0) L 04/29/18 10:40 Baso % (Auto) 0.5 % (0.0-3.0) 04/29/18 10:40 Gran # 3.02 (1.4-6.5) 04/29/18 10:40 Lymph # (Auto) 0.4 (1.2-3.4) L 04/29/18 10:40 [place] # (Auto) 0.2 (0.1-0.6) 04/29/18 10:40 Eos # (Auto) 0.0 (0.0-0.7) 04/29/18 10:40 Baso # (Auto) 0.02 K/mm3 (0.0-2.0) 04/29/18 10:40 Neutrophils % (Manual) 58 % (50.0-70.0) 04/29/18 02:05 Band Neutrophils % 16 % (0-2) H* 04/29/18 02:05 Lymphocytes % (Manual) 19 % (22.0-35.0) L 04/29/18 02:05 Monocytes % (Manual) 5 % (1.0-6.0) 04/29/18 02:05 Eosinophils % (Manual) 1 % (0.0-3.0) 04/29/18 02:05 Metamyelocytes % 1 % 04/29/18 02:05 Platelet Evaluation Low (NORMAL) 04/29/18 02:05 Poikilocytosis (manual Slight 04/29/18 02:05 Anisocytosis (manual) Slight 04/29/18 02:05 PT 13.5 SECONDS (9.4-12.5) H 04/29/18 05:50 INR 1.17 (0.93-1.08) H 04/29/18 05:50 APTT 35.0 Seconds (25.1-36.5) 04/28/18 12:30 pCO2 27 mm/Hg (35-45) L 04/29/18 05:10 pO2 122 mm/Hg (30-55) H 04/29/18 10:40 HCO3 16.7 mmol/L (21-28) L 04/29/18 05:10 ABG pH 7.40 (7.35-7.45) 04/29/18 05:10 ABG Total CO2 17.5 mmol.L (22-28) L 04/29/18 05:10 ABG O2 Saturation 100.7 % (95-98) H 04/29/18 05:10 ABG O2 Content 11.9 ML/dl (15-23) L 04/29/18 05:10 ABG Base Excess -7.2 mmol/L (-2.0-3.0) L 04/29/18 05:10 ABG Hemoglobin 8.3 g/dL (11.7-17.4) L 04/29/18 05:10 ABG Carboxyhemoglobin 1.8 % (0.5-1.5) H 04/29/18 05:10 POC ABG HHb (Measured) -0.7 % (0-5) L 04/29/18 05:10 ABG Methemoglobin 0.6 % (0.0-3.0) 04/29/18 05:10 ABG O2 Capacity 11.8 mL/dl (16-24) L 04/29/18 05:10 VBG pH 7.38 (7.32-7.43) 04/29/18 10:40 VBG pCO2 29.0 (40-60) L 04/29/18 10:40 VBG HCO3 17.2 mmol/l (21-28) L 04/29/18 10:40 VBG Total CO2 18.1 mmol.L (22-28) L 04/29/18 10:40 VBG O2 Sat (Calc) 99.7 % (40-65) H 04/29/18 10:40 VBG Base Excess -6.6 mmol/L (0.0-2.0) L 04/29/18 10:40 VBG Potassium 3.0 mmol/L (3.6-5.2) L 04/29/18 10:40 Hgb O2 Saturation 98.3 % (95.0-98.0) H 04/29/18 05:10 Sodium 148.0 mmol/L (132-148) 04/29/18 10:40 Chloride 124.0 mmol/L (98-107) H 04/29/18 10:40 Glucose 76 mg/dl (75-110) 04/29/18 10:40 Lactate 1.5 mmol/L (0.7-2.1) 04/29/18 10:40 FiO2 21.0 % 04/29/18 10:40 Sodium 147 mmol/L (132-148) 04/29/18 13:35 Potassium 3.3 mmol/L (3.6-5.0) L 04/29/18 13:35 Chloride 123 mmol/L (98-107) H 04/29/18 13:35 Carbon Dioxide 18 mmol/L (21-33) L 04/29/18 13:35 Anion Gap 10 (10-20) 04/29/18 13:35 BUN 22 mg/dL (7-21) H 04/29/18 13:35 Creatinine 0.8 mg/dl (0.8-1.5) 04/29/18 13:35 Est GFR ( Amer) > 60 04/29/18 13:35 Est GFR (Non-Af Amer) > 60 04/29/18 13:35 POC Glucose (mg/dL) 83 mg/dL (65-110) 04/29/18 02:11 Random Glucose 63 mg/dL (70-110) L 04/29/18 13:35 Calcium 9.1 mg/dL (8.4-10.5) 04/29/18 13:35 Phosphorus 2.9 mg/dL (2.5-4.5) 04/29/18 05:50 Magnesium 1.8 mg/dL (1.7-2.2) 04/29/18 05:50 Total Bilirubin 6.1 mg/dL (0.2-1.3) H 04/29/18 05:50 AST 73 U/L (17-59) H D 04/29/18 05:50 ALT 31 U/L (7-56) 04/29/18 05:50 Alkaline Phosphatase 136 U/L (38-126) H 04/29/18 05:50 Troponin I < 0.01 ng/mL 04/28/18 12:30 Total Protein 4.9 g/dL (5.8-8.3) L 04/29/18 05:50 Albumin 1.7 g/dL (3.0-4.8) L 04/29/18 05:50 Globulin 3.1 gm/dL 04/29/18 05:50 Albumin/Globulin Ratio 0.6 (1.1-1.8) L 04/29/18 05:50 Procalcitonin 27.10 NG/ML (0.19-0.49) H 04/29/18 10:40 Venous Blood Potassium 3.0 mmol/L (3.6-5.2) L 04/29/18 10:40 Urine Color Yellow (YELLOW) 04/29/18 11:46 Urine Appearance Sl cloudy (CLEAR) 04/29/18 11:46 Urine pH 6.0 (4.7-8.0) 04/29/18 11:46 Ur Specific [place] 1.020 (1.005-1.035) 04/29/18 11:46 Urine Protein Trace mg/dL (<30 mg/dL) H 04/29/18 11:46 Urine Glucose (UA) Negative mg/dL (NEGATIVE) 04/29/18 11:46 Urine Ketones Negative mg/dL (NEGATIVE) 04/29/18 11:46 Urine Blood Negative (NEGATIVE) 04/29/18 11:46 Urine Nitrate Negative (NEGATIVE) 04/29/18 11:46 Urine Bilirubin Moderate (NEGATIVE) H 04/29/18 11:46 Urine Urobilinogen 0.2 E.U./dL (<1 E.U./dL) 04/29/18 11:46 Ur Leukocyte Esterase Negative [place]/uL (NEGATIVE) 04/29/18 11:46 Urine RBC Negative /hpf (0-2) 04/29/18 11:46 Urine WBC Negative /hpf (0-6) 04/29/18 11:46 Urine Bacteria Few (NEG) 04/29/18 11:46 Fine Granular Casts 0 - 2 /hpf (0-2) 04/29/18 11:46 Coarse Granular Casts Mod /hpf (0-2) H 04/29/18 11:46 RPR Nonreactive (NONREACTIVE) 04/29/18 14:00 Blood Type A NEGATIVE 04/28/18 12:20 Antibody Screen Negative 04/28/18 12:20 Crossmatch See Detail 04/28/18 12:20 BBK History Checked Patient has bt 04/28/18 12:20 Discharge Exam - Head Exam Head Exam: NORMAL INSPECTION, NORMOCEPHALIC Discharge Plan - Follow Up Plan Condition: GOOD Disposition: Trans to Other Acute Care Hosp
--- NOTE | 2018-04-30 08:50 | PN ---
DATE: 04/29/2018 The history and physical as stated in the resident's note. The case was discussed with Dr. Elmer Arvizu on 04/28/2018. In view of the large right hepatic aneurysm and the extensive collateralization between the SMA and celiac artery in this region, I advised Dr. 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 Dr. Arvizu concur. Юлия Figueroa MD
--- NOTE | 2018-04-30 22:09 | CP.PCM.DIS ---
Provider - Provider Date of Admission: 04/28/18 11:07 Attending physician: Stephanie Carey MD Time Spent in preparation of Discharge (in minutes): 45 Diagnosis - Discharge Diagnosis (1) Hemorrhagic shock Status: Acute Priority: High (2) Respiratory failure Status: Acute Priority: High (3) Upper GI bleed Status: Acute Priority: High (4) Pulmonary embolism Status: Acute Priority: High (5) Syphilis Status: Chronic Priority: Medium (6) AIDS Status: Chronic Priority: High (7) Tuberculosis Status: Acute Priority: High (8) Wasting syndrome Status: Acute Priority: High Hospital Course - Lab Results Lab Results: Micro Results 04/28/18 15:15 Blood Blood Culture - Preliminary NO GROWTH AFTER 48 HOURS 04/29/18 13:35 Blood-Venous Blood Culture - Preliminary NO GROWTH AFTER 24 HOURS 04/29/18 13:55 Blood-Venous Blood Culture - Preliminary Gram Negative Sukhjinder 04/29/18 13:55 Blood-Venous Gram Stain - Final 04/28/18 15:40 Blood Blood Culture - Preliminary Gram Negative Sukhjinder 04/28/18 15:40 Blood Gram Stain - Final 04/29/18 11:46 Urine,Man Urine Culture - Final No Growth (<1,000 CFU/ML) 04/28/18 12:50 Naris MRSA Culture (Admit) - Final MRSA NOT DETECTED Most Recent Lab Values WBC 4.1 10^3/ul (4.5-11.0) L 04/29/18 13:35 RBC 2.74 10^6/uL (3.5-6.1) L 04/29/18 13:35 Hgb 8.3 g/dL (14.0-18.0) L 04/29/18 13:35 Hct 23.0 % (42.0-52.0) L 04/29/18 13:35 MCV 83.9 fl (80.0-105.0) 04/29/18 13:35 MCH 30.3 pg (25.0-35.0) 04/29/18 13:35 MCHC 36.1 g/dl (31.0-37.0) 04/29/18 13:35 RDW 16.6 % (11.5-14.5) H 04/29/18 13:35 Plt Count 57 10^3/uL (120.0-450.0) L 04/29/18 13:35 MPV 10.0 fl (7.0-11.0) 04/29/18 13:35 Gran % 81.2 % (50.0-68.0) H 04/29/18 10:40 Lymph % (Auto) 11.6 % (22.0-35.0) L 04/29/18 10:40 [place] % (Auto) 6.2 % (1.0-6.0) H 04/29/18 10:40 Eos % (Auto) 0.5 % (1.5-5.0) L 04/29/18 10:40 Baso % (Auto) 0.5 % (0.0-3.0) 04/29/18 10:40 Gran # 3.02 (1.4-6.5) 04/29/18 10:40 Lymph # (Auto) 0.4 (1.2-3.4) L 04/29/18 10:40 [place] # (Auto) 0.2 (0.1-0.6) 04/29/18 10:40 Eos # (Auto) 0.0 (0.0-0.7) 04/29/18 10:40 Baso # (Auto) 0.02 K/mm3 (0.0-2.0) 04/29/18 10:40 Neutrophils % (Manual) 58 % (50.0-70.0) 04/29/18 02:05 Band Neutrophils % 16 % (0-2) H* 04/29/18 02:05 Lymphocytes % (Manual) 19 % (22.0-35.0) L 04/29/18 02:05 Monocytes % (Manual) 5 % (1.0-6.0) 04/29/18 02:05 Eosinophils % (Manual) 1 % (0.0-3.0) 04/29/18 02:05 Metamyelocytes % 1 % 04/29/18 02:05 Platelet Evaluation Low (NORMAL) 04/29/18 02:05 Poikilocytosis (manual Slight 04/29/18 02:05 Anisocytosis (manual) Slight 04/29/18 02:05 PT 13.5 SECONDS (9.4-12.5) H 04/29/18 05:50 INR 1.17 (0.93-1.08) H 04/29/18 05:50 APTT 35.0 Seconds (25.1-36.5) 04/28/18 12:30 pCO2 27 mm/Hg (35-45) L 04/29/18 05:10 pO2 122 mm/Hg (30-55) H 04/29/18 10:40 HCO3 16.7 mmol/L (21-28) L 04/29/18 05:10 ABG pH 7.40 (7.35-7.45) 04/29/18 05:10 ABG Total CO2 17.5 mmol.L (22-28) L 04/29/18 05:10 ABG O2 Saturation 100.7 % (95-98) H 04/29/18 05:10 ABG O2 Content 11.9 ML/dl (15-23) L 04/29/18 05:10 ABG Base Excess -7.2 mmol/L (-2.0-3.0) L 04/29/18 05:10 ABG Hemoglobin 8.3 g/dL (11.7-17.4) L 04/29/18 05:10 ABG Carboxyhemoglobin 1.8 % (0.5-1.5) H 04/29/18 05:10 POC ABG HHb (Measured) -0.7 % (0-5) L 04/29/18 05:10 ABG Methemoglobin 0.6 % (0.0-3.0) 04/29/18 05:10 ABG O2 Capacity 11.8 mL/dl (16-24) L 04/29/18 05:10 VBG pH 7.38 (7.32-7.43) 04/29/18 10:40 VBG pCO2 29.0 (40-60) L 04/29/18 10:40 VBG HCO3 17.2 mmol/l (21-28) L 04/29/18 10:40 VBG Total CO2 18.1 mmol.L (22-28) L 04/29/18 10:40 VBG O2 Sat (Calc) 99.7 % (40-65) H 04/29/18 10:40 VBG Base Excess -6.6 mmol/L (0.0-2.0) L 04/29/18 10:40 VBG Potassium 3.0 mmol/L (3.6-5.2) L 04/29/18 10:40 Hgb O2 Saturation 98.3 % (95.0-98.0) H 04/29/18 05:10 Sodium 148.0 mmol/L (132-148) 04/29/18 10:40 Chloride 124.0 mmol/L (98-107) H 04/29/18 10:40 Glucose 76 mg/dl (75-110) 04/29/18 10:40 Lactate 1.5 mmol/L (0.7-2.1) 04/29/18 10:40 FiO2 21.0 % 04/29/18 10:40 Sodium 147 mmol/L (132-148) 04/29/18 13:35 Potassium 3.3 mmol/L (3.6-5.0) L 04/29/18 13:35 Chloride 123 mmol/L (98-107) H 04/29/18 13:35 Carbon Dioxide 18 mmol/L (21-33) L 04/29/18 13:35 Anion Gap 10 (10-20) 04/29/18 13:35 BUN 22 mg/dL (7-21) H 04/29/18 13:35 Creatinine 0.8 mg/dl (0.8-1.5) 04/29/18 13:35 Est GFR ( Amer) > 60 04/29/18 13:35 Est GFR (Non-Af Amer) > 60 04/29/18 13:35 POC Glucose (mg/dL) 83 mg/dL (65-110) 04/29/18 02:11 Random Glucose 63 mg/dL (70-110) L 04/29/18 13:35 Calcium 9.1 mg/dL (8.4-10.5) 04/29/18 13:35 Phosphorus 2.9 mg/dL (2.5-4.5) 04/29/18 05:50 Magnesium 1.8 mg/dL (1.7-2.2) 04/29/18 05:50 Total Bilirubin 6.1 mg/dL (0.2-1.3) H 04/29/18 05:50 AST 73 U/L (17-59) H D 04/29/18 05:50 ALT 31 U/L (7-56) 04/29/18 05:50 Alkaline Phosphatase 136 U/L (38-126) H 04/29/18 05:50 Troponin I < 0.01 ng/mL 04/28/18 12:30 Total Protein 4.9 g/dL (5.8-8.3) L 04/29/18 05:50 Albumin 1.7 g/dL (3.0-4.8) L 04/29/18 05:50 Globulin 3.1 gm/dL 04/29/18 05:50 Albumin/Globulin Ratio 0.6 (1.1-1.8) L 04/29/18 05:50 Procalcitonin 27.10 NG/ML (0.19-0.49) H 04/29/18 10:40 Venous Blood Potassium 3.0 mmol/L (3.6-5.2) L 04/29/18 10:40 Urine Color Yellow (YELLOW) 04/29/18 11:46 Urine Appearance Sl cloudy (CLEAR) 04/29/18 11:46 Urine pH 6.0 (4.7-8.0) 04/29/18 11:46 Ur Specific [place] 1.020 (1.005-1.035) 04/29/18 11:46 Urine Protein Trace mg/dL (<30 mg/dL) H 04/29/18 11:46 Urine Glucose (UA) Negative mg/dL (NEGATIVE) 04/29/18 11:46 Urine Ketones Negative mg/dL (NEGATIVE) 04/29/18 11:46 Urine Blood Negative (NEGATIVE) 04/29/18 11:46 Urine Nitrate Negative (NEGATIVE) 04/29/18 11:46 Urine Bilirubin Moderate (NEGATIVE) H 04/29/18 11:46 Urine Urobilinogen 0.2 E.U./dL (<1 E.U./dL) 04/29/18 11:46 Ur Leukocyte Esterase Negative [place]/uL (NEGATIVE) 04/29/18 11:46 Urine RBC Negative /hpf (0-2) 04/29/18 11:46 Urine WBC Negative /hpf (0-6) 04/29/18 11:46 Urine Bacteria Few (NEG) 04/29/18 11:46 Fine Granular Casts 0 - 2 /hpf (0-2) 04/29/18 11:46 Coarse Granular Casts Mod /hpf (0-2) H 04/29/18 11:46 RPR Nonreactive (NONREACTIVE) 04/29/18 14:00 Blood Type A NEGATIVE 04/28/18 12:20 Antibody Screen Negative 04/28/18 12:20 Crossmatch See Detail 04/28/18 12:20 BBK History Checked Patient has bt 04/28/18 12:20 - Hospital Course Hospital Course: Patient is a 52 year old male with a past medical history of AIDS, tuberculosis involving the bone marrow, sphyllis, cachexia/failure to thrive, parasthesias who was transferred to the [facility] for evaluation and treatment of bright red blood per mouth. 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 During their hospital stay the patient was seen by critical care ( Dr. Parrish), infectious disease (Dr. Fernandez), GI (Dr. Cagle), interventional radiology (Dr. Arvizu), and vascular surgery (Dr. Choudhury), whose recommendations were reviewed, appreciated, and implemented in the patients care. The critical care team implemented and managed the patient's mechanical ventilator settings and pressor support. Infectious disease started the patient on RIP therapy to treat the patient's active tuberculosis, pencillin to treat his sphyllis, and meropenem to treat against gram negative rods found on blood culture. Vascular surgery deemed no acute surgical intervention at that time due to patient's high risk of intraoperative mortality. GI stated there was no role for endoscopic therapy given patient's overall clinical scenario and recommended anticogulation treatment for the PE if the hemoglobin remained stable after 72 hour. Interventional radiology performed an embolization with coil of the mycotic aneurism of the left hepatic artery. Following the procedure the blood pressure was stabilized with levophed, intravenous fluids, and blood products. Patient was deemed stable for transport status post aforementioned interventions and was transferred to [facility] for further care. This is a brief summary of the patient hospital course. Please see patient chart for full details. Discharge Exam - Additional Findings Additional findings: - Constitutional Appears: No Acute Distress, Older Than Stated Age, Cachectic, Chronically Ill - Head Exam Head Exam: ATRAUMATIC, NORMAL INSPECTION - Eye Exam Eye Exam: Perrl - ENT Exam ENT Exam: Mucous Membranes Dry - Respiratory Exam Respiratory Exam: Clear to Auscultation Bilateral - Cardiovascular Exam Cardiovascular Exam: REGULAR RATE AND RHYTHM, no murmurs, no rubs, no gallops - GI/Abdominal Exam GI & Abdominal Exam: Distended, normal bowel sounds x 4 - Extremities Exam Extremities Exam: lower extremity edema, no cyanosis, no clubbing - Neurological Exam Neurological Exam: limited exam-sedated on ventilator - Skin Skin Exam: jaundice Discharge Plan - Follow Up Plan Condition: GOOD Disposition: Trans to Other Acute Care Hosp Referrals: Jackson Cagle MD [Staff Provider] - Mitesh Carlton MD [Staff Provider] - Elmer Arvizu MD [Staff Provider] -
[2018-05-01] MEDS ORDERED: Tmp-Smz 800 mg-160 mg DS Tab PO SCH (10:00)
== END 2018-04-29 17:49 | disposition short-term general hospital (02) | DRG 270 ==
LOC: SDSVAS 11:00 → CCU 11:07
PROVIDERS: ADMIT Internal Medicine; ATTEND Internal Medicine
PROC: 04L33DZ Occlusion of Hepatic Artery with Intraluminal Device, Percutaneous Approach (ICD-10-PCS; principal; 2018-04-28)
PROC: 06H03DZ Insertion of Intraluminal Device into Inferior Vena Cava, Percutaneous Approach (ICD-10-PCS; 2018-04-28)
PROC: 5A1945Z Respiratory Ventilation, 24-96 Consecutive Hours (ICD-10-PCS; 2018-04-28)
PROC: 6A551Z2 Pheresis of Platelets, Multiple (ICD-10-PCS; 2018-04-28)
PROC: 30233N1 Transfusion of Nonautologous Red Blood Cells into Peripheral Vein, Percutaneous Approach (ICD-10-PCS; 2018-04-28)
PROC: 30233N1 Transfusion of Nonautologous Red Blood Cells into Peripheral Vein, Percutaneous Approach (ICD-10-PCS; 2018-04-29)
DX: I72.8 Aneurysm of other specified arteries (principal); R57.8 Other shock; R57.1 Hypovolemic shock; J96.00 Acute respiratory failure, unspecified whether with hypoxia or hypercapnia; A19.9 Miliary tuberculosis, unspecified; B20 Human immunodeficiency virus [HIV] disease; I26.99 Other pulmonary embolism without acute cor pulmonale; K31.6 Fistula of stomach and duodenum; D62 Acute posthemorrhagic anemia; D61.818 Other pancytopenia; R64 Cachexia; R50.82 Postprocedural fever; A53.9 Syphilis, unspecified; D50.0 Iron deficiency anemia secondary to blood loss (chronic); E83.52 Hypercalcemia; E87.6 Hypokalemia; K31.819 Angiodysplasia of stomach and duodenum without bleeding; R29.6 Repeated falls; R62.7 Adult failure to thrive; Z83.3 Family history of diabetes mellitus